=== PATIENT | female | born 1945 | race Caucasian/White ===

== ENCOUNTER 2025-01-09 14:40 | Outpatient (CLI) | payer MEDICARE, BC, SELFPAY | END 2025-01-09 14:41 | disposition home or self-care (01) | LOC: AMB 01-10 14:21 | PROVIDERS: PCP Family Medicine; Visit Provider Emergency Medicine | DX: R55 Syncope and collapse (principal); R53.83 Other fatigue | CPT/HCPCS: A0425; A0427 ==

== ENCOUNTER 2025-01-09 15:16 | Emergency (ER) | payer MEDICARE, BC, SELFPAY ==
[2025-01-09] VITALS (60 sets, daily range): BP systolic 87–161; BP diastolic 54–103; PULSE 80–93; RESP 10–34; TEMP 35.4–37.1; O2SAT 92–100
--- OUTSIDE RECORDS SUMMARY | 2025-01-09 15:18 | XMS_ITS | Clinical Summary ---
Author Organization [employer] [facility] Address [address] [place] [id number] Care Team Providers Care Coil Strapper Name Role Phone Mali Monroy MD Primary Care Prov ider Jeet Martinez Unavailable Kelvin Sandoval MD Unavailable [phone] Allergies No known active allergies Medications MULTIVITAMIN TAB take 1 tablet by oral route once daily with food 0 9 Active LYSINE 1,000 MG TAB 0 9 Active Boemd-3-IER-EPA-F josefa Oil (FISH OIL) 1,000 mg (120 mg-180 mg) cap Take 1 capsule by mouth once daily. 0 7 Active cholecalciferol, Vitamin D3, 25 mcg (1,000 unit) chew chewable tablet Chew 1 Tablet (1,000 units) by mouth once daily. Not sure of dose 0 2 Active medication order composerIndicatio ns:Osteoporosis, unspecified osteoporosis type, unspecified pathological fracture presence Strontium Citrate - 680mg 1 unit 2 Active atorvastatin (LIPITOR) 10 mg tabletIndications :Hypercholesterem ia Take 1 Tablet (10 mg) by mouth once daily. 90 Tablet 3 4 Active levothyroxine (SYNTHROID) 112 mcg tabletIndications :Thyroid ca (HC) Take 1 Tablet (112 mcg) by mouth before breakfast. 90 Tablet 3 4 Active fluticasone (50 mcg per actuation) nasal solution (FLONASE)Indicati ons:Seasonal allergies Inhale 2 Sprays in both nostrils once daily. 16 g 3 Active Hospital, Clinic, or Other Facility Administered Medication Ordered Dose Route Frequency Start Date End Date Status denosumab (PROLIA) injection 60 mgIndications:Other osteoporosis without current pathological fracture 60 mg SubQ Q 26 WEEKS 06/02/2024 06/01/2025 Active Active Problems Problem Noted Date Diagnosed Date ACP (advance care planning) 07/04/2019 Overview (07/04/2019): HCD received . See HCD 06/16/19 PA Banks Advance Care Planning Educator Thyroid ca 08/23/2017 Overview (04/24/2021): Added automatically from request for surgery [id number] Per endocrine 04/2021 The Patient has an excellent prognosis with respect to her thyroid cancer diagnosis. A reasonable plan would include: Annual Tg monitoring: with reassurance if ongoing negative results are noted. Lifelong synthroid use. Thyroid nodule 07/13/2017 Overview (07/13/2017): Added automatically from request for surgery [id number] Seasonal allergies 05/10/2014 Screen for colon cancer 09/15/2012 Overview (09/15/2012): Colonoscopy 09/2012 normal repeat in 10 years Hypercholesteremia 08/18/2012 Osteopenia 05/29/2010 Overview (09/01/2015): 2015 stable osteopenia repeat in 3-5 yrs Resolved Problems Problem Noted Date Diagnosed Date Resolved Date Cancer of thyroid 09/02/2017 04/22/2021 Encounters Date Type Department Care Team Description 01/09/2025 1:35 PM CDT Office Visit [facility] [address] [place] [address] Karen Jaeger PA Concerns (SOUSA Concerns pressure in Forehead. Congestion/tightness in chest. SOBEDigestion concerns. No regular BM for 5 weeks. Last Bm was shoe string size. Last BM was this morning. Bloating ) 01/09/2025 Refill [facility] [address] [place] [address] Karen Jaeger PA Refill Request (Fluticasone (50 Mcg Per Actuation) Nasal) 01/09/2025 Travel from Last 3 Months Immunizations Immunization Administration Dates Next Due COVID-19 vaccine ([employer] NTPanGenX 30mcg/0.3mL) PF, MDV 07/22/2021 Influenza, High-dose Inactivated 024,05/06/2021,05/31/2019,2017,04/19/2014 Influenza, High-dose Quadriv alent Inactivated 05/06/2021 Influenza, IIV3 (Age >=3 years) 06/03/2013,08/25 Influenza, Inactivated AIIV4 (Age 65+ Years) Preserv Free 06/01/2023,04/23/2022 Influenza, Inactivated IIV3 (Age 65+ Years) Preserv Free 05/04/2017 Pneumococcal Poly,23-Valent (Pneumovax) 08/25/2012 Pneumococcal conj 13-Valent (Prevnar 13) 05/04/2017 Td (Age >=7 Years) 02/20/2000 Tdap 06/03/2009 Zoster (Shingrix-RZV, recombinant) 11/29/2023, Zoster (Zostavax-ZVL, live) 09/08/2012 Family History Medical History Relation Name Comments Heart Disease Brother 1 Francisco CABG in 69 69 and AF Heart Disease Brother 2 Jr ME - 2 vessels passed from blockage Cancer Brother 3 Sam mesothelemoma Psychiatric illness Brother 3 Sam depressi on COPD Brother 4 Pat Memory loss Brother 4 Pat Psychiatric illness Brother 4 Pat depressi on Stroke Brother 4 Pat Premature CHD (under age 60) Brother 5 Peter drowning age 21 unsure if heart no autopsy Psychiatric illness Daughter severe d epression Heart Disease Father Heart Disease Mother Osteoporosis Mother Heart Disease Sister 1 Vera CABG x4 Hyperlipidemia Sister 1 Vera on meds Osteoporosis Sister 1 Vera Hyperlipidemia Sister 2 Gerri taking medica tion Osteoporosis Sister 2 Gerri Other Sister 2 Gerri uterine cysts Cancer Sister 3 Cony bone Heart Disease Sister 3 Cony likely cause o f Hyperlipidemia Sister 3 Cony Osteoporosis Sister 3 Cony Good Health Sister 4 Chinyere hernia, uterine fibroids Osteoporosis Sister 4 [place] Allergies Son Cancer-breast No Family History Relation Name Status Comments Brother 1 Francisco Brother 2 Jr Brother 3 Sam Brother 4 Lois Brother 5 Darrell Daughter Father Mother Sister 1 Mandy Alive Sister 2 Gerri Alive Sister 3 Cony Sister 4 Chinyere Alive Son Social History Tobacco Use Types Packs/Day Years Used Date Smoking Tobacco: Never Smokeless Tobacco: Never Tobacco Cessation:Counseling Given: Yes Alcohol Use Standard Drinks/Week Comments Yes 0 (1 standard drink = 0.6 oz pur e alcohol) PHQ-2 Answer Date Recorded PHQ-2 TOTAL SCORE 0 06/01/2024 Social Connections Answer Date Recorded Do you often feel lonely or isolated from those around you? 0 06/01/2024 Financial Resource Strain Answer Date R ecorded Difficulty of Paying Living Expenses 3 06/01/2024 Difficulty of Paying Living Expenses Not on file 06/01/2024 Food Insecurity Answer Date Recorded Do you worry your food will run out before you are able to buy more? 1 06/01/2024 Transportation Needs Answer Date Record ed Does lack of transportation keep you from medica l appointments? 1 06/01/2024 Does lack of transportation keep you from work, meetings or getting things that you need? 1 06/01/2024 Housing Stability Answer Date Recorded What is your housing situation today? 1 06/01/2024 Utilities Answer Date Recorded Do you have trouble paying f or utilities (for example, heat, electricity, water, phone)? 1 06/01/2024 Comments No Sex and Gender Information Value Date Recorded Sex Assigned at Not on file Legal Sex Female 6:32 AM [employer] Gender Identity Not on file Sexual Orientation Not on file Obstetrics History Para Term AB IAB SAB Ectopic Multiple Livin g Live Births 2 2 2 2 Date Outcome GA Total Labor Labor/2nd/3rd Weight Sex Type Anes PTL Ligia A1 A5 Name Clin Term Term Last Filed Vital Signs Vital Sign Reading Time Taken Comments Blood Pressure 112/74 01/09/2025 1:39 PM CDT Pulse 97 01/09/2025 1:39 PM CDT Temperature 36.3 C (97.4 F) 11/18/2017 9:02 AM CDT Respiratory Rate 16 08/31/2022 10:21 AM [employer] Oxygen Saturation 98% 01/09/2025 1:39 PM CDT Inhaled Oxygen Concentration - - Weight 74.4 kg (164 lb) 01/09/2025 1:39 PM CDT Height 163.8 cm (5' 4.5) 06/01/2024 9:28 AM CDT Body Mass Index 27.72 06/01/2024 9:28 AM CDT Plan of Treatment Health Maintenance Due Date Last Done Comments Tetanus booster 06/03/2019 06/03/2009, 02/20/2000 RSV vaccine for adults or (1 - 1-dose 75+ series) 2022 COVID-19 vaccine series ( season) 2024 05/04/2024, 06/11/2022, 07/22/2021, Additional history exists BMI (ht and wt on same day) for age 18+ 06/01/2025 06/01/2024, 06/01/2023, 04/23/2022, Additional history exists Depression screening for age 12+ 06/01/2025 06/01/2024, 06/02/2023, 06/01/2023, Additional history exists Medicare Wellness for age 65+ 06/02/2025 06/01/2024, 06/01/2023, 04/23/2022, Additional history exists Tdap Completed 06/03/2009 Pneumococcal series for age 50+ Completed 05/04/2017, 08/25/2012 Hepatitis C screening for age 18-79 Completed 04/22/2021 DEXA/DXA scan for age 65+ Completed 2022, 05/08/2021, 08/22/2015, Additional history exists Zoster (shingles) series for age 50+ Completed 11/29/2023, 08/05/2023, 09/08/2012 Influenza Vaccine Completed 05/04/2024, , 04/23/2022, Additional history exists Hepatitis B series for 19+ Aged Out N o longer eligible based on patient's age to complete this topic Procedures Procedure Name Priority Date/Time Associated Diagnosis Comments XR DXA BONE DENSITY 2 SITES AXIAL Routine 06/02/2023 10:42 AM CDT Age-related osteoporosis without current pathological fracture from Last 3 Months or Most Recently Relevant to Health Maintenance Results * (ABNORMAL) XR DXA BONE DENSITY 2 SITES AXIAL (06/02/2023 10:42 AM CDT) Anatomical Region Laterality Modality Spine, HIPS, HIPL, HIPR Other Impressions 06/02/2023 5:01 PM CDT Osteoporosis. RECOMMENDATIONS: The National Osteoporosis Foundation recommends pharmacologic treatment for patients with T-scores of -2.5 or less, patients with prior history of fragility fractures, or patients with 10-year probability of greater than 3% at hips or greater than 20% of suffering major osteoporotic fractures. Recommend continued optimization of calcium and vitamin D intake through dietary means and/or supplementation and regular exercise. Consider pharmacologic therapy for osteoporosis. Follow-up bone density reading in 2 years if therapy initiated to assess therapeutic efficacy. Jacquelyn Rees PA-C [facility] 06/02/2023 Narrative 06/02/2023 5:01 PM CDT For Patients: Results are automatically released to your [facility] ([facility]) account once available, in compliance with federal regulations. This means that you may see your results before your provider has had a chance to review them. Please allow 2-3 business days for your provider to comment on the results. XR DXA Bone Mineral Density (BMD) EXAM LOCATION: [address] [address] PATIENT NAME: Rosemarie Valdez DATE OF : 1945 EXAM DATE: 06/02/2023 REQUESTING PROVIDER: Karen Jaeger PA GENDER AT : female HEIGHT: 5' 4.41 (06/01/2023) WEIGHT: 158 lb 3.2 oz (06/01/2023) MENOPAUSAL STATUS: Postmenopausal RACE/ETHNICITY: White RISK FACTORS: Family History of Osteoporosis, Family History of Hip Fracture (parental), and White Race CURRENT MEDICATION FOR BONE LOSS: NONE INDICATION: Follow-up of existing osteoporosis COMPARISON DATE(S): 2020 DXA scans are compared to prior studies for a patient only when the two (or more) studies were performed on the same scanner. It is not possible to compare data generated on one scanner to data from another because there are not standards in DXA equipment. This applies even if the two scanners are made by the same cardiographer. PROCEDURE: Dual-energy x-ray absorptiometry performed with routine technique. Reporting is completed in the form of a T-score. The T-score represents the standard deviation from peak bone mass based on young healthy adult. A Z-score is used for diagnosis in premenopausal women, and for men under the age of 50. FINDINGS: RESULT LUMBAR SPINE L1 - L4(L3) BMD: 1.013 g/cm2 T-Score: - 1.3 Z-Score: + 0.2 Change from prior in 2020: Increase 7.1%. RESULTS FEMUR Left femoral neck BMD: 0.702 g/cm2 T-Score: - 2.4 Z-Score: - 0.6 Change from prior in 2020: Increase 0.9%. Right femoral neck BMD: 0.686 g/cm2 T-Score: - 2.5 Z-Score: - 0.7 Change from prior in 2020: Increase 2.2%. Left hip BMD: 0.728 g/cm2 T-Score: - 2.2 Z-Score: - 0.6 Change from prior in 2020: Increase 1.4%. Right hip BMD: 0.686 g/cm2 T-Score: - 2.6 Z-Score: - 0.9 Change from prior in 2020: Decrease 1.4%. WHO criteria: Normal: T-score at or above -1 SD Osteopenia: T-score between -1.1 and -2.4 SD Osteoporosis: T-score at or below -2.5 SD Karen MACIAS DEXA Final Res ult from Last 3 Months or Most Recently Relevant to Health Maintenance Insurance MEDICARE PB ONLY MEDICARE PART B HB ONLY MEDICARE PART A HB ONLY Member Subscriber Plan / Payer (Ef fective 2012-Present) Name:Rosemarie Valdez Member ID:[id number] Relation to Subscriber:Self Name:Rosemarie Valdez Subscriber ID:[id number] Payer ID:Not on file Group ID:Not on file Type:Not on file Address: ATTN: CLAIMS [address] [place] [id number] [place] [address] Advance Directives Documents on File Type Date Recorded Patient Health Safety Specialist Expl anation Healthcare Directive 07/03/2019 11:03 AM 1 08/16/2018 * Full Code (Latest Code Status on File) Date Activated Date Inactivated Comments 08/27/2017 12:15 PM 08/27/2017 4:44 PM * Full Code Date Activated Date Inactivated Comments 08/27/2017 7:42 AM 08/27/2017 12:15 PM * Full Code Date Activated Date Inactivated Comments 08/20/2017 7:51 PM 08/21/2017 12:45 PM * Full Code Date Activated Date Inactivated Comments 08/20/2017 5:42 AM 08/20/2017 7:32 PM Care Teams Coil Strapper Relationship Specialty Start Date End Date Mali Monroy MD [address] [place] [address] PCP - General 09/06/06 Jeet Martinez [address] [place] [address] Ophthalmology Surgery 08/18/12 Kelvin Sandoval MD [address] [facility] [address] [place] [address] Endocrinology 08/28/22
[2025-01-09] MEDS: 0.9 % SODIUM CHLORIDE 1000 ml 1,000 ML IV (15:20)
--- NOTE | 2025-01-09 15:27 | CRLHL7_ITS ---
For Patients: As a result of the Century Cures Act, medical imaging exams and procedure reports are released immediately into your electronic medical record. You may view this report before your referring provider. If you have questions, please contact your health care provider. INDICATION: Chest pain TECHNIQUE: Chest radiograph 1 view COMPARISON: None FINDINGS: The sensitivity and specificity of the exam are moderately limited by the patient`s body habitus. Mediastinum: A large gas-filled sliding type gastric hiatal hernia (type IV) is present. The heart silhouette is normal in size and morphology. Lung: Small lung volumes are noted with mild bibasilar atelectasis. No sign of pleural effusion seen. No pneumothorax is identified. Bone and Soft tissue: Unremarkable for age. IMPRESSIONS: 1. Small lung volumes are noted with mild bibasilar atelectasis. 2. A large gas-filled sliding type gastric hiatal hernia (type IV) is present. Evaluation with barium swallow may be helpful to exclude gastric outlet obstruction from the hernia. Dictated by Moiz Kelly MD @ 01/09/2025 3:46:52 PM Dictated by: Moiz Kelly MD @ 01/09/2025 15:46:58 (Electronically Signed)
[2025-01-09 15:36] LABS: Basophils Absolute Auto 0.05 K/uL (0.00-0.30); Basophils Percent Auto 0.6 % (0.0-3.0); Eosinophils Absolute Auto 0.07 K/uL (0.00-0.50); Eosinophils Percent Auto 0.8 % (0.0-7.0); Hematocrit 22.6 % (33.0-51.0); Immature Granulocytes Abs Auto 0.04 K/uL (0.00-0.30); Immature Granulocytes Pct Auto 0.4 %; Lymphocytes Absolute Auto 2.37 K/uL (0.90-2.90); Lymphocytes Percent Auto 26.1 % (20-44); Mean Corpuscular HGB Conc 31 gm/dL (32-36); Mean Corpuscular Hemoglobin 22 pg (26-34); Mean Corpuscular Volume 73 fL (80-100); Monocytes Percent Auto 6.9 % (0.0-11.0); Neutrophils Absolute Auto 5.91 K/uL (1.7-7.0); Neutrophils Percent Auto 65.2 % (42.0-72.0); Platelet Count* 478 K/uL (140-440); RDW Coefficient of Variation % 15.7 % (11.5-15.5); Red Blood Count 3.08 m/uL (4.00-5.20); White Blood Count* 9.07 K/uL (4.50-11.00)
--- NOTE | 2025-01-09 15:36 | CRLHL7_ITS ---
For Patients: As a result of the Century Cures Act, medical imaging exams and procedure reports are released immediately into your electronic medical record. You may view this report before your referring provider. If you have questions, please contact your health care provider. INDICATION: Syncope TECHNIQUE: Noncontrast axial CT of the head. Coronal and sagittal reformats. Bone and soft tissue algorithms. COMPARISON: None. FINDINGS: Patient motion artifact degrades image quality and limits evaluation. Rounded 12 mm hyperdense focus along the posterior right occipital lobe, favored extra-axial. No associated parenchymal edema, midline shift or herniation. No other suspicious intracranial hyperdensity. Chase-white matter differentiation appears grossly preserved. Chronic lacunar infarct at the right posterior basal ganglia. Unremarkable midline structures. Intact calvarium. Clear paranasal sinuses and mastoid air cells. Bilateral TMJ arthrosis. Bilateral lens implants. IMPRESSION: 1. Rounded 12 mm hyperdensity along the right posterior occipital convexity, is favored to represent a small meningioma. Consider MRI brain with contrast for further characterization. 2. No skull fracture or convincing evidence of acute intracranial hemorrhage given artifact from patient motion. Please note that all CT scans at this facility use dose modulation, iterative reconstruction, and/or weight-based dosing when appropriate to reduce radiation dose to as low as reasonably achievable. Dictated by Viola Santillan MD @ 01/09/2025 5:04:19 PM (Electronically Signed)
[2025-01-09 15:39] LABS: Glucose, Point-of-Care* 126 mg/dl (60-115)
[2025-01-09 15:40] LABS: Hemoglobin* 6.9 gm/dL (12.0-16.0); Slide Review Reflex No
--- NOTE | 2025-01-09 15:43 | CRLHL7_ITS ---
For Patients: As a result of the Century Cures Act, medical imaging exams and procedure reports are released immediately into your electronic medical record. You may view this report before your referring provider. If you have questions, please contact your health care provider. INDICATION: Syncope, anemia. TECHNIQUE: CT chest PE was acquired with 95 cc Isovue 370 IV contrast. Coronal and sagittal MIP reformats were performed. COMPARISON: None. FINDINGS: Heart and vasculature: No cardiomegaly, no pericardial effusion. No filling defects identified within the main, lobar, and contrast opacified portions of the segmental pulmonary arteries, within limitations of motion artifact. Several segmental and subsegmental pulmonary arteries in the left lower lobe are not well evaluated due to mass effect. There is significant mass effect upon the left atrium secondary to large hiatal hernia. Lungs and pleura: Extensive left lower lobe compressive atelectasis. No evidence of pulmonary infarct. Right basilar subsegmental atelectasis is also noted. Thyroid and lower neck: Thyroid gland is either severely atrophic or absent. Mediastinum/levon: No lymphadenopathy. Chest wall: No axillary lymphadenopathy. Upper abdomen: See separate report of same day CT abdomen/pelvis. Bones: Multilevel degenerative changes of the spine. Bones are osteopenic. IMPRESSION: 1. No evidence of acute pulmonary embolus, within limitations of motion artifact. 2. No evidence of pulmonary infarct. Significant left lower lobe compressive atelectasis. 3. Significant mass effect upon the left atrium secondary to large hiatal hernia. Please note that all CT scans at this facility use dose modulation, iterative reconstruction, and/or weight-based dosing when appropriate to reduce radiation dose to as low as reasonably achievable. Dictated by Kai Brannon MD @ 01/09/2025 5:47:56 PM (Electronically Signed)
--- NOTE | 2025-01-09 15:43 | CRLHL7_ITS ---
For Patients: As a result of the Century Cures Act, medical imaging exams and procedure reports are released immediately into your electronic medical record. You may view this report before your referring provider. If you have questions, please contact your health care provider. INDICATION: Abdominal pain. TECHNIQUE: CT abdomen and pelvis acquired with 95 mL Isovue 370 IV contrast. COMPARISON: None. FINDINGS: Lower chest: See separate report of same day CT chest. Liver: Too small to characterize hypodense hepatic lesions, likely benign in the absence of a known malignancy. Gallbladder and bile ducts: Unremarkable. Pancreas: Unremarkable. Spleen: Unremarkable. Adrenal glands: Unremarkable. Kidneys: Kidneys enhance symmetrically, without hydronephrosis. Too small to characterize hypodense bilateral renal lesions. Retroperitoneum: No lymphadenopathy. Bowel and mesentery: Bowel is not obstructed. No significant ascites, no pneumoperitoneum. Scattered colonic diverticulosis, without evidence of acute diverticulitis. Mild colitis of the ascending and transverse colon. Massive hiatal hernia, with majority of stomach contained within the thorax. There is mild irregular distal esophageal thickening, with few prominent but subcentimeter adjacent paraesophageal lymph nodes. Bladder: Mild pericystic inflammation. Reproductive organs: Unremarkable. Pelvic lymph nodes: No lymphadenopathy. Vessels: Atherosclerotic calcifications. Abdominal wall: No acute abdominal wall abnormality. Bones: Multilevel degenerative changes of the spine. Bones are osteopenic. Dense sclerotic lesion in the L4 vertebral body, likely bone island. IMPRESSION: 1. Massive hiatal hernia, with majority of the stomach contained within the thorax. Mild irregular distal esophageal wall thickening with few prominent adjacent paraesophageal lymph nodes, may reflect sequelae of esophagitis. Recommend follow-up endoscopy to exclude underlying neoplasm. 2. Mild colitis involving the ascending and transverse colon. 3. Mild pericystic inflammation, recommend correlation with urinalysis. Please note that all CT scans at this facility use dose modulation, iterative reconstruction, and/or weight-based dosing when appropriate to reduce radiation dose to as low as reasonably achievable. Dictated by Kai Brannon MD @ 01/09/2025 6:05:31 PM (Electronically Signed)
[2025-01-09 15:51] LABS: Albumin* 3.5 g/dL (3.3-5.0); Chloride* 100 mmol/L (96-114); Potassium* 3.4 mmol/L (3.6-5.1); Sodium* 129 mmol/L (135-149)
[2025-01-09 15:53] LABS: Anion Gap 12 mEq/L (7-15); Blood Urea Nitrogen* 23 mg/dL (7-30); Carbon Dioxide* 17 mmol/L (20-32); Creatinine* 0.9 mg/dL (0.5-1.5); Estimated Glomerular Filt Rate 66 ml/min
[2025-01-09 15:54] LABS: Alanine Aminotransferase* 18 U/L (4-35); Alkaline Phosphatase* 69 U/L (40-150); Aspartate Amino Transferase* 22 U/L (12-35); Bilirubin Direct* 0.2 mg/dL (0.0-0.5); Bilirubin Total* 0.3 mg/dL (0.1-1.5); Calcium* 8.4 mg/dL (8.4-10.6); Glucose* 127 mg/dL (60-115); Total Protein* 5.7 g/dL (6.0-8.3)
[2025-01-09 15:56] LABS: D Dimer Quantitative* 0.57 ug/ml (0.00-0.50)
[2025-01-09 16:06] LABS: Troponin I* < 0.01 ng/mL (0.01-0.04)
--- NOTE | 2025-01-09 16:10 | ED_ITS ---
HPI - General Adult General Chief complaint: Dizziness/Vertigo Stated complaint: Weakness Time Seen by Provider: 01/09/25 15:23 History of Present Illness HPI narrative: pt was at the clinic where she either had a seizure or a syncopal episode, unsure of what the clinic visit was for today but per EMS was having chest pressure for 3 weeks, but had no chest pressure today. 79-year-old presenting to the emergency department via EMS [facility] following apparent syncopal event in clinic. Has had per report few weeks intermittent chest discomfort. Also question whether not been taking excessive ibuprofen. Evidently upon presentation to clinic became rather pale and passed out. Was hypotensive 70/50 approximately. I am able to clarify this story later with Rosemarie when she is more alert. She has been dealing with headache for months. Has been taking ibuprofen for her headache. She has not noted any blood in her stools and has not been vomiting. Over the last couple of weeks has had intermittent chest discomfort, pressure and this is what prompted the visit today to clinic. She has been having smaller loose stools lately. Related Data Allergies Allergy/AdvReac Type Severity Reaction Status Date / Time No Known Drug Allergies Allergy Verified 01/09/25 20:08 Review of Systems Status of ROS: Reports: 6 or more systems reviewed and unremarkable except as noted in History and below (Following resuscitation) PFSH PFSH Social History Smoking Status: Unknown if ever smoked Exam Narrative: Exam Narrative: A initial evaluation presenting with blood pressure of 87/58. She is moaning and not really responsive eyes are open. Supporting her own airway. Oxygenating well. Pupils are 2 mm and equal. There is a little bit of blood on her lower abdomen presumably from IV start. I do not see source of this at this point. She skin is generally pale and clammy. Mucous membranes are rather pale. Abdomen is soft and appears to be nontender. GCS of 13 or 14. Lungs appear to be clear. Heart in elevated rate. Regular Const: Vital Signs, click to edit/add: Vital Signs - 24 hr 01/09/25 15:20 01/09/25 15:23 01/09/25 15:32 Temperature 95.8 F L Pulse Rate 87 Pulse Rate [Pulse Oximeter] 93 Respiratory Rate 18 33 H Blood Pressure 110/68 Blood Pressure [Ri ght Upper Arm] 87/58 L Pulse Oximetry 98 99 98 Oxygen Delivery Me thod Room Air 01/09/25 15:33 01/09/25 15:34 01/09/25 15:36 Temperature Pulse Rate 85 85 83 Pulse Rate [Pulse Oximeter] Respiratory Rate 28 H 32 H 34 H Blood Pressure 111/63 110/65 Blood Pressure [Ri ght Upper Arm] Pulse Oximetry 99 97 98 Oxygen Delivery Me thod 01/09/25 15:37 01/09/25 15:41 01/09/25 15:45 Temperature Pulse Rate 83 86 83 Pulse Rate [Pulse Oximeter] Respiratory Rate 29 H 33 H 29 H Blood Pressure 111/63 Blood Pressure [Ri ght Upper Arm] Pulse Oximetry 98 98 99 Oxygen Delivery Me thod 01/09/25 15:46 01/09/25 15:51 01/09/25 15:56 Temperature 96.2 F L Pulse Rate 87 82 86 Pulse Rate [Pulse Oximeter] Respiratory Rate 27 H 28 H 26 H Blood Pressure 107/61 114/62 109/70 Blood Pressure [Ri ght Upper Arm] Pulse Oximetry 98 100 99 Oxygen Delivery Me thod 01/09/25 15:57 01/09/25 16:00 01/09/25 16:01 Temperature Pulse Rate 89 83 83 Pulse Rate [Pulse Oximeter] Respiratory Rate 23 31 H 21 Blood Pressure 111/61 Blood Pressure [Ri ght Upper Arm] Pulse Oximetry 100 100 97 Oxygen Delivery Me od 01/09/25 16:11 01/09/25 16:15 01/09/25 16:21 Temperature Pulse Rate 85 85 86 Pulse Rate [Pulse Oximeter] Respiratory Rate 26 H 33 H 18 Blood Pressure 117/67 100/61 Blood Pressure [Ri ght Upper Arm] Pulse Oximetry 100 97 100 Oxygen Delivery Me od 01/09/25 16:30 01/09/25 16:31 01/09/25 16:48 Temperature Pulse Rate 85 86 87 Pulse Rate [Pulse Oximeter] Respiratory Rate 24 23 26 H Blood Pressure 90/54 L 114/63 Blood Pressure [Ri ght Upper Arm] Pulse Oximetry 100 97 100 Oxygen Delivery Me thod 01/09/25 17:16 01/09/25 17:20 01/09/25 17:31 Temperature 97.5 F L Pulse Rate 82 80 83 Pulse Rate [Pulse Oximeter] Respiratory Rate 26 H 24 22 Blood Pressure 131/75 131/75 131/64 Blood Pressure [Ri ght Upper Arm] Pulse Oximetry 99 98 99 Oxygen Delivery Me thod Room Air 01/09/25 17:40 01/09/25 17:41 01/09/25 18:01 Temperature 96.3 F L Pulse Rate 82 86 86 Pulse Rate [Pulse Oximeter] Respiratory Rate 20 13 15 Blood Pressure 116/85 116/85 123/67 Blood Pressure [Ri ght Upper Arm] Pulse Oximetry 98 98 95 Oxygen Delivery Me thod Room Air 01/09/25 18:15 01/09/25 18:16 01/09/25 18:31 Temperature 97.3 F L Pulse Rate 87 84 85 Pulse Rate [Pulse Oximeter] Respiratory Rate 18 15 19 Blood Pressure 126/67 126/67 132/70 Blood Pressure [Ri ght Upper Arm] Pulse Oximetry 95 97 92 Oxygen Delivery Me thod Room Air 01/09/25 18:45 01/09/25 19:01 01/09/25 19:02 Temperature 96.9 F L Pulse Rate 80 81 81 Pulse Rate [Pulse Oximeter] Respiratory Rate 23 17 22 Blood Pressure 122/72 98/66 Blood Pressure [Ri ght Upper Arm] Pulse Oximetry 95 96 96 Oxygen Delivery Me thod Room Air 01/09/25 19:15 01/09/25 19:15 01/09/25 19:16 Temperature 97.8 F Pulse Rate 80 83 81 Pulse Rate [Pulse Oximeter] Respiratory Rate 21 26 H 21 Blood Pressure 119/64 119/64 Blood Pressure [Ri ght Upper Arm] Pulse Oximetry 96 95 96 Oxygen Delivery Me thod Room Air 01/09/25 19:30 01/09/25 19:31 01/09/25 19:32 Temperature Pulse Rate 82 87 82 Pulse Rate [Pulse Oximeter] Respiratory Rate 22 24 Blood Pressure 103/64 Blood Pressure [Ri ght Upper Arm] Pulse Oximetry 97 97 95 Oxygen Delivery Me thod 01/09/25 19:40 01/09/25 19:58 01/09/25 19:59 Temperature 98.1 F 97.5 F L Pulse Rate 85 86 Pulse Rate [Pulse Oximeter] Respiratory Rate 16 Blood Pressure 139/74 139/74 Blood Pressure [Ri ght Upper Arm] Pulse Oximetry 97 100 Oxygen Delivery Me thod 01/09/25 20:00 01/09/25 20:01 01/09/25 20:02 Temperature Pulse Rate 84 89 84 Pulse Rate [Pulse Oximeter] Respiratory Rate 26 H 19 Blood Pressure 128/75 Blood Pressure [Ri ght Upper Arm] Pulse Oximetry 97 94 96 Oxygen Delivery Me thod 01/09/25 20:15 01/09/25 20:16 01/09/25 20:21 Temperature 98.3 F Pulse Rate 85 84 86 Pulse Rate [Pulse Oximeter] Respiratory Rate 17 19 16 Blood Pressure 139/70 129/71 Blood Pressure [Ri ght Upper Arm] Pulse Oximetry 94 94 94 Oxygen Delivery Me thod 01/09/25 20:23 01/09/25 20:30 01/09/25 20:31 Temperature Pulse Rate 87 83 84 Pulse Rate [Pulse Oximeter] Respiratory Rate 16 15 10 L Blood Pressure 129/71 130/69 Blood Pressure [Ri ght Upper Arm] Pulse Oximetry 95 95 95 Oxygen Delivery Me thod 01/09/25 20:45 01/09/25 20:45 01/09/25 20:46 Temperature 98.3 F Pulse Rate 86 89 86 Pulse Rate [Pulse Oximeter] Respiratory Rate 14 33 H 22 Blood Pressure 140/82 H 140/82 H 143/76 H Blood Pressure [Ri ght Upper Arm] Pulse Oximetry 97 96 96 Oxygen Delivery Me thod Room Air 01/09/25 20:47 01/09/25 21:00 Temperature Pulse Rate 86 86 Pulse Rate [Pulse Oximeter] Respiratory Rate 17 25 H Blood Pressure Blood Pressure [Ri ght Upper Arm] Pulse Oximetry 96 100 Oxygen Delivery Me thod Course Vital Signs Vital signs: Initial Vital Signs Temperature 95.8 F L 01/09/25 15:20 Temperature Source Temporal Artery Scan 01/09/25 15:20 Pulse Rate 93 01/09/25 15:20 Respiratory Rate 18 01/09/25 15:20 Blood Pressure 87/58 L 01/09/25 15:20 Blood Pressure Mean 67 L 01/09/25 15:20 Blood Pressure Position Supine 01/09/25 15:20 Pulse Oximetry 98 01/09/25 15:20 Oxygen Delivery Method Room Air 01/09/25 15:20 Vital Signs Temperature 95.8 F L 01/09/25 15:20 Pulse Rate 93 01/09/25 15:20 Respiratory Rate 18 01/09/25 15:20 Blood Pressure 87/58 L 01/09/25 15:20 Pulse Oximetry 98 01/09/25 15:20 Oxygen Delivery Method Room Air 01/09/25 15:20 Temperature 98.3 F 01/09/25 20:45 Pulse Rate 86 01/09/25 21:00 Respiratory Rate 25 H 01/09/25 21:00 Blood Pressure 143/76 H 01/09/25 20:46 Pulse Oximetry 100 01/09/25 21:00 Oxygen Delivery Method Room Air 01/09/25 20:45 Medications Administered Medications: Discontinued Medications Generic Name Dose Route Start Last Admin Trade Name Freq PRN Reason Stop Dose Admin Sodium Chloride 1,000 mls @ 1,000 mls/hr 01/09/25 15:28 01/09/25 15:50 0.9 % Sodium Chloride 1000 Ml IV 01/09/25 16:27 Infused .Q1H ONE Infusion Ondansetron HCl 4 mg 01/09/25 16:49 01/09/25 16:54 Ondansetron 2 Mg/Ml Inj IVP 01/09/25 16:50 4 mg ONCE ONE Administration Pantoprazole Sodium 40 mg 01/09/25 16:49 01/09/25 16:54 Pantoprazole Sodium 40 Mg Inj IVP 01/09/25 16:50 40 mg ONCE ONE Administration Medical Decision Making MDM Narrative Medical decision making narrative: Obtaining a 2nd IV for pressure support as needed. This may represent sepsis. I think there was a syncopal event and might be just slow to come out of that. Mucous membranes are pale enough to suggest anemia. Assuming distributive or cardiogenic shock. Will monitor for arrhythmia. Blood sugar approximately 150. Doubt pulmonary embolus be given lack of respiratory symptoms otherwise but certainly possible. Anticipating imaging of chest. Oxygenating well and supporting phone airway will not need intervention here yet. Pushing fluids. Has received most of a 500 bag by EMS. At about 800 mL of fluid in appears to be responding well to this resuscitation. Labs do return with hemoglobin of 7.9. I do not have a prior for comparison although looks to be like 12.3 on later review of records back in 2018. Will be imaging abdomen as well. Type and screen. Stool Hemoccult will need to be collected. INDICATION: Chest pain TECHNIQUE: Chest radiograph 1 view COMPARISON: None FINDINGS: The sensitivity and specificity of the exam are moderately limited by the patient`s body habitus. Mediastinum: A large gas-filled sliding type gastric hiatal hernia (type IV) is present. The heart silhouette is normal in size and morphology. Lung: Small lung volumes are noted with mild bibasilar atelectasis. No sign of pleural effusion seen. No pneumothorax is identified. Bone and Soft tissue: Unremarkable for age. IMPRESSIONS: 1. Small lung volumes are noted with mild bibasilar atelectasis. 2. A large gas-filled sliding type gastric hiatal hernia (type IV) is present. Evaluation with barium swallow may be helpful to exclude gastric outlet obstruction from the hernia. I wonder if this hiatal hernia could been contributing to some of her symptoms recently or even precipitated in some way this syncopal event. Dictated by Moiz Kelly MD @ 01/09/2025 3:46:52 PM INDICATION: Syncope, anemia. TECHNIQUE: CT chest PE was acquired with 95 cc Isovue 370 IV contrast. Coronal and sagittal MIP reformats were performed. COMPARISON: None. FINDINGS: Heart and vasculature: No cardiomegaly, no pericardial effusion. No filling defects identified within the main, lobar, and contrast opacified portions of the segmental pulmonary arteries, within limitations of motion artifact. Several segmental and subsegmental pulmonary arteries in the left lower lobe are not well evaluated due to mass effect. There is significant mass effect upon the left atrium secondary to large hiatal hernia. Lungs and pleura: Extensive left lower lobe compressive atelectasis. No evidence of pulmonary infarct. Right basilar subsegmental atelectasis is also noted. Thyroid and lower neck: Thyroid gland is either severely atrophic or absent. Mediastinum/levon: No lymphadenopathy. Chest wall: No axillary lymphadenopathy. Upper abdomen: See separate report of same day CT abdomen/pelvis. Bones: Multilevel degenerative changes of the spine. Bones are osteopenic. IMPRESSION: 1. No evidence of acute pulmonary embolus, within limitations of motion artifact. 2. No evidence of pulmonary infarct. Significant left lower lobe compressive atelectasis. 3. Significant mass effect upon the left atrium secondary to large hiatal hernia. Please note that all CT scans at this facility use dose modulation, iterative reconstruction, and/or weight-based dosing when appropriate to reduce radiation dose to as low as reasonably achievable. Dictated by Kai Brannon MD @ 01/09/2025 5:47:56 PM INDICATION: Syncope TECHNIQUE: Noncontrast axial CT of the head. Coronal and sagittal reformats. Bone and soft tissue algorithms. COMPARISON: None. FINDINGS: Patient motion artifact degrades image quality and limits evaluation. Rounded 12 mm hyperdense focus along the posterior right occipital lobe, favored extra-axial. No associated parenchymal edema, midline shift or herniation. No other suspicious intracranial hyperdensity. Chase-white matter differentiation appears grossly preserved. Chronic lacunar infarct at the right posterior basal ganglia. Unremarkable midline structures. Intact calvarium. Clear paranasal sinuses and mastoid air cells. Bilateral TMJ arthrosis. Bilateral lens implants. IMPRESSION: 1. Rounded 12 mm hyperdensity along the right posterior occipital convexity, is favored to represent a small meningioma. Consider MRI brain with contrast for further characterization. 2. No skull fracture or convincing evidence of acute intracranial hemorrhage given artifact from patient motion. Please note that all CT scans at this facility use dose modulation, iterative reconstruction, and/or weight-based dosing when appropriate to reduce radiation dose to as low as reasonably achievable. Dictated by Viola Santillan MD @ 01/09/2025 5:04:19 PM INDICATION: Abdominal pain. TECHNIQUE: CT abdomen and pelvis acquired with 95 mL Isovue 370 IV contrast. COMPARISON: None. FINDINGS: Lower chest: See separate report of same day CT chest. Liver: Too small to characterize hypodense hepatic lesions, likely benign in the absence of a known malignancy. Gallbladder and bile ducts: Unremarkable. Pancreas: Unremarkable. Spleen: Unremarkable. Adrenal glands: Unremarkable. Kidneys: Kidneys enhance symmetrically, without hydronephrosis. Too small to characterize hypodense bilateral renal lesions. Retroperitoneum: No lymphadenopathy. Bowel and mesentery: Bowel is not obstructed. No significant ascites, no pneumoperitoneum. Scattered colonic diverticulosis, without evidence of acute diverticulitis. Mild colitis of the ascending and transverse colon. Massive hiatal hernia, with majority of stomach contained within the thorax. There is mild irregular distal esophageal thickening, with few prominent but subcentimeter adjacent paraesophageal lymph nodes. Bladder: Mild pericystic inflammation. Reproductive organs: Unremarkable. Pelvic lymph nodes: No lymphadenopathy. Vessels: Atherosclerotic calcifications. Abdominal wall: No acute abdominal wall abnormality. Bones: Multilevel degenerative changes of the spine. Bones are osteopenic. Dense sclerotic lesion in the L4 vertebral body, likely bone island. IMPRESSION: 1. Massive hiatal hernia, with majority of the stomach contained within the thorax. Mild irregular distal esophageal wall thickening with few prominent adjacent paraesophageal lymph nodes, may reflect sequelae of esophagitis. Recommend follow-up endoscopy to exclude underlying neoplasm. 2. Mild colitis involving the ascending and transverse colon. 3. Mild pericystic inflammation, recommend correlation with urinalysis. Please note that all CT scans at this facility use dose modulation, iterative reconstruction, and/or weight-based dosing when appropriate to reduce radiation dose to as low as reasonably achievable. Dictated by Kai Brannon MD @ 01/09/2025 6:05:31 PM Discussed all findings with Rosemarie and her family. Following imaging and having received 1 unit of blood on reassessment is markedly improved. Color is improved. Mentating normally and obtaining the 2nd part of HPI as above. I think probably this is a slower upper GI bleed in the setting of this possible esophagitis. Contemplating for admission here for EGD if necessary. I did discuss this case with hospitalist and then with our general surgeon. Concerns also expressed of largeness of this hiatal hernia maybe requiring more urgent surgery/decompression. Have spoke with GI and General surgery and then internal medicine accepting to [place] for further cares. Attempting to place an NG tube Medical Records Medical records reviewed: Yes I reviewed the patient's medical records Lab Data Lab results reviewed: Yes I reviewed the patient's lab results Labs: Lab Results 01/09/25 01/09/25 01/09/25 Range/Units 15:15 15:20 15:21 WBC 9.07 (4.50-11.00) K/uL RBC 3.08 L (4.00-5.20) m/uL Hgb 6.9 L* (12.0-16.0) gm/dL Hct 22.6 L (33.0-51.0) % MCV 73 L (80-100) fL MCH 22 L (26-34) pg MCHC 31 L (32-36) gm/dL RDW Coeff of Rosa 15.7 H (11.5-15.5) % Plt Count 478 H (140-440) K/uL Neut % (Auto) 65.2 (42.0-72.0) % Lymph % (Auto) 26.1 (20-44) % Hardee % (Auto) 6.9 (0.0-11.0) % Eos % (Auto) 0.8 (0.0-7.0) % Baso % (Auto) 0.6 (0.0-3.0) % Neut # (Auto) 5.91 (1.7-7.0) K/uL Lymph # (Auto) 2.37 (0.90-2.90) K/uL Hardee # (Auto) 0.60 (0.00-0.90) K/UL Eos # (Auto) 0.07 (0.00-0.50) K/uL Baso # (Auto) 0.05 (0.00-0.30) K/uL Abs Immat Gran (auto) 0.04 (0.00-0.30) K/uL Imm/Tot Granulo (auto) 0.4 % D-Dimer Quant (PE/DVT) 0.57 H (0.00-0.50) ug/ml Sodium 129 L (135-149) mmol/L Potassium 3.4 L (3.6-5.1) mmol/L Chloride 100 (96-114) mmol/L Carbon Dioxide 17 L (20-32) mmol/L Anion Gap 12 (7-15) mEq/L BUN 23 (7-30) mg/dL Creatinine 0.9 (0.5-1.5) mg/dL Estimated GFR 66 ml/min Glucose 127 H (60-115) mg/dL Calcium 8.4 (8.4-10.6) mg/dL Total Bilirubin 0.3 (0.1-1.5) mg/dL Direct Bilirubin 0.2 (0.0-0.5) mg/dL AST 22 (12-35) U/L ALT 18 (4-35) U/L Alkaline Phosphatase 69 (40-150) U/L Troponin I < 0.01 (0.01-0.04) ng/mL Total Protein 5.7 L (6.0-8.3) g/dL Albumin 3.5 (3.3-5.0) g/dL Urine Color (Yellow) Urine Appearance (Clear) Urine pH (5.0-8.5) Ur Specific Kechi (1.000-1.030) Urine Protein (Negative) Urine Glucose (UA) (Negative) Urine Ketones (Negative) Urine Blood (Negative) Urine Nitrite (Negative) Urine Bilirubin (Negative) Urine Urobilinogen (0.2-1.0) Ur Leukocyte Esterase (Negative) Urine RBC (0-2) Urine WBC (0-5) Ur Squamous Epith Cells (None-Few) Urine Bacteria (None) Stool Occult Blood (Negative) POC Glucose (60-115) mg/dl POC Creatinine 1.0 (0.6-1.3) mg/dl POC Troponin I 0.00 L (0.01-0.04) ng/ml Blood Type O Positive Antibody Screen NEGATIVE Crossmatch (AHG) See Detail 01/09/25 01/09/25 01/09/25 Range/Units 15:38 15:39 18:45 WBC (4.50-11.00) K/uL RBC (4.00-5.20) m/uL Hgb (12.0-16.0) gm/dL Hct (33.0-51.0) % MCV (80-100) fL MCH (26-34) pg MCHC (32-36) gm/dL RDW Coeff of Rosa (11.5-15.5) % Plt Count (140-440) K/uL Neut % (Auto) (42.0-72.0) % Lymph % (Auto) (20-44) % Hardee % (Auto) (0.0-11.0) % Eos % (Auto) (0.0-7.0) % Baso % (Auto) (0.0-3.0) % Neut # (Auto) (1.7-7.0) K/uL Lymph # (Auto) (0.90-2.90) K/uL Hardee # (Auto) (0.00-0.90) K/UL Eos # (Auto) (0.00-0.50) K/uL Baso # (Auto) (0.00-0.30) K/uL Abs Immat Gran (auto) (0.00-0.30) K/uL Imm/Tot Granulo (auto) % D-Dimer Quant (PE/DVT) (0.00-0.50) ug/ml Sodium (135-149) mmol/L Potassium (3.6-5.1) mmol/L Chloride (96-114) mmol/L Carbon Dioxide (20-32) mmol/L Anion Gap (7-15) mEq/L BUN (7-30) mg/dL Creatinine (0.5-1.5) mg/dL Estimated GFR ml/min Glucose (60-115) mg/dL Calcium (8.4-10.6) mg/dL Total Bilirubin (0.1-1.5) mg/dL Direct Bilirubin (0.0-0.5) mg/dL AST (12-35) U/L ALT (4-35) U/L Alkaline Phosphatase (40-150) U/L Troponin I (0.01-0.04) ng/mL Total Protein (6.0-8.3) g/dL Albumin (3.3-5.0) g/dL Urine Color Yellow (Yellow) Urine Appearance Clear (Clear) Urine pH 6.0 (5.0-8.5) Ur Specific Ke[place] 1.010 (1.000-1.030) Urine Protein Negative (Negative) Urine Glucose (UA) Negative (Negative) Urine Ketones 1+ A (Negative) Urine Blood Negative (Negative) Urine Nitrite Negative (Negative) Urine Bilirubin Negative (Negative) Urine Urobilinogen 0.2 (0.2-1.0) Ur Leukocyte Esterase Negative (Negative) Urine RBC 0-2 (0-2) Urine WBC 0-2 (0-5) Ur Squamous Epith Cells Few (None-Few) Urine Bacteria None (None) Stool Occult Blood Positive A (Negative) POC Glucose 126 H (60-115) mg/dl POC Creatinine (0.6-1.3) mg/dl POC Troponin I (0.01-0.04) ng/ml Blood Type Antibody Screen Crossmatch (AHG) Critical Care Time Critical Care Time Critical Care Time: Yes Attestation: The patient required my highest level preparedness to intervene emergently and I personally spent this critical care time directly and personally managing the patient. This critical care time included: Obtaining a history; Examining the patient; Pulse oximetry; Ordering and reviewing of studies; Arranging urgent treatment with development of a management plan; Evaluation of patients response to treatment; Frequent reassessment discussions with other providers. This critical care time was performed to assess and manage the high probability of imminent life-threatening deterioration that could result in multiorgan failure. It was exclusive of separate billable procedures and treating other patients and teaching time. Total Critical Care Time in Minutes: 80 Discharge Plan Discharge Clinical Impression: Upper GI bleed, Hiatal hernia, Syncope, Anemia, Esophagitis, Brain lesion Patient Disposition: [facility] Condition: Improved Stand Alone Forms: [facility] Inst[facility]
[2025-01-09] MEDS: PANTOPRAZOLE SODIUM 40 MG INJ IVP (16:54)
[2025-01-09] MEDS: ONDANSETRON 2 MG/ML inj 4 MG IVP (16:54)
[2025-01-09 18:58] LABS: Fecal Occult Blood* Positive (Negative)
[2025-01-09 20:04] LABS: Appearance Urine Clear (Clear); Bilirubin Urine Negative (Negative); Blood Urine Negative (Negative); Color Urine Yellow (Yellow); Glucose Urine Negative (Negative); Ketones Urine 1+ (Negative); Leukocyte Esterase Urine Negative (Negative); Nitrite Urine Negative (Negative); Protein Urine Negative (Negative); Urobilinogen Urine 0.2 (0.2-1.0)
[2025-01-09 20:06] LABS: RBC Urine 0-2 (0-2); Squamous Epithelial Cell Urine Few (None-Few); WBC Urine 0-2 (0-5)
--- NOTE | 2025-01-09 21:04 | CRLHL7_ITS ---
For Patients: As a result of the Cures Act, medical imaging exams and procedure reports are released immediately into your electronic medical record. You may view this report before your referring provider. If you have questions, please contact your health care provider. INDICATION: NG tube placement TECHNIQUE: Chest radiograph 1 view COMPARISON: 01/09/2025 FINDINGS: Mediastinum: A large gas containing gastric hernia is noted without interval change. Lung: Mild compressive atelectasis is seen in the lower lung zones. Both lung apices are excluded. No sign of pleural effusion seen. No pneumothorax is identified. Bone and Soft tissue: Unremarkable for age. NG tube is present with the tip likely within the gastric cardia and side port near the expected GE junction. IMPRESSION: 1. NG tube is present with the tip likely within the gastric cardia and side port near the expected GE junction. Dictated by Moiz Kelly MD @ 01/09/2025 9:31:03 PM Dictated by: Moiz Kelly MD @ 01/09/2025 21:31:11 (Electronically Signed)
== END 2025-01-09 21:40 | disposition short-term general hospital (02) ==
PROVIDERS: Emergency Provider Family Medicine; PCP Family Medicine
DX: K92.2 Gastrointestinal hemorrhage, unspecified (principal); R55 Syncope and collapse; D64.9 Anemia, unspecified; K20.90 Esophagitis, unspecified without bleeding; K44.9 Diaphragmatic hernia without obstruction or gangrene; G93.9 Disorder of brain, unspecified; R07.9 Chest pain, unspecified; I95.9 Hypotension, unspecified; R51.9 Headache, unspecified
CPT/HCPCS: 36415; 36430; 70450; 71045; 71275; 74160; 74177; 80048; 80053; 80076; 81001; 82270; 82565; 82947; 84484; 85025; 85379; 86850; 86900; 86901; 86922; 93005; 94761; 99284; 99291; J2405; J2470; J7030; P9016; Q9967

== ENCOUNTER 2025-01-09 21:31 | Outpatient (CLI) | payer MEDICARE, BC, SELFPAY | END 2025-01-09 21:32 | disposition home or self-care (01) | LOC: AMB 01-10 14:49 | PROVIDERS: PCP Family Medicine; Visit Provider Family Medicine | DX: R10.9 Unspecified abdominal pain (principal); R53.83 Other fatigue; R51.9 Headache, unspecified; R06.02 Shortness of breath | CPT/HCPCS: A0425; A0427 ==

== ENCOUNTER 2025-01-14 14:13 | Outpatient (CLI) | payer MEDICARE, BC, SELFPAY | END 2025-01-14 14:14 | disposition home or self-care (01) | LOC: AMB 01-15 13:12 | PROVIDERS: PCP Family Medicine; Visit Provider Emergency Medicine Emergency Medical Services | DX: R56.9 Unspecified convulsions (principal); R53.1 Weakness | CPT/HCPCS: A0425; A0427 ==

== ENCOUNTER 2025-01-19 05:55 | Outpatient (CLI) | payer MEDICARE, BC, SELFPAY | END 2025-01-19 05:56 | disposition home or self-care (01) | LOC: AMB 01-22 09:15 | PROVIDERS: PCP Family Medicine; Visit Provider Family Medicine | DX: R53.1 Weakness (principal); K92.1 Melena | CPT/HCPCS: A0425; A0433 ==

== ENCOUNTER 2025-01-19 06:49 | Emergency (ER) | payer MEDICARE, BC, SELFPAY ==
--- OUTSIDE RECORDS SUMMARY | 2025-01-15 19:00 | XMS_ITS | Continuity of Care Document ---
Author Organization [facility] Address [address] [address] [place] [address] Phone Care Team Providers Care Spiral Weaver Name Role Phone Viji Mckeon MD Unavailable Unavailable Advance Directives Directive Yes / No Effective Date File Name No Information Encounters Encounter Description Practice Location Reason(s) For Visit Diagnoses Date Provider Providers Copied on Encounter [facility], [address] [address], [place], [place], [id number], tel:[phone] [facility] No Information 5 Linda Hallman. [address] [place] [address], [id number] , [place]. tel:[phone] [facility], [address] [address], [place], [place], [id number], [place] tel:[phone] [facility] No Information 5 Linda Hallman. [address] [place] [address], [id number] , [place]. tel:[phone] [facility], [address] [address], [place], [place], [id number], [place] [phone] [facility] Iron deficiency anemia, unspecified iron deficiency anemia type 5 Deni Myers. [address] [place] [address], [id number] , [place]. tel:[phone] Family History Family Member Type Diagnosis Age At Onset No Information Immunizations Vaccine Date Status Comments Influenza, high-dose, split virus, trivalent, injectable, preservative free administered Note: [facility] bi-direct ional interface ; Source: Other Registry SARS-COV-2 (COVID-19) vaccin e, mRNA, spike protein, LNP, preservative free, 50 mcg/0.5 mL dose administered Note: [facility] bi-direct ional interface ; Source: Other Registry zoster vaccine recombinant administered N ote: [facility] bi-directional interface ; Source: Other Registry zoster vaccine recombinant administered N ote: [facility] bi-directional interface ; Source: Other Registry Influenza, adjuvanted, inactivated, quadrivalent, injectable, preservative free administered Note: [facility] bi-directional interface ; Source: Other Registry SARS-COV-2 (COVID-19) vaccin e, mRNA, spike protein, LNP, bivalent, preservative free, 30 mcg/0.3 mL dose, myles-sucrose formulation administered Note: [facility] bi-direct ional interface ; Source: Other Registry Influenza, adjuvanted, inactivated, quadrivalent, injectable, preservative free administered Note: [facility] bi-directional interface ; Source: Other Registry SARS-COV-2 (COVID-19) vaccin e, mRNA, spike protein, LNP, preservative free, 30 mcg/0.3mL dose administered Note: [facility] bi-direct ional interface ; Source: Other Registry Influenza, high-dose, split virus, quadrivalent, injectable, preservative free administered Note: [facility] bi-direct ional interface ; Source: Other Registry SARS-COV-2 (COVID-19) vaccin e, mRNA, spike protein, LNP, preservative free, 30 mcg/0.3mL dose administered Note: [facility] bi-direct ional interface ; Source: Other Registry SARS-COV-2 (COVID-19) vaccin e, mRNA, spike protein, LNP, preservative free, 30 mcg/0.3mL dose administered Note: [facility] bi-direct ional interface ; Source: Other Registry Influenza, high-dose, split virus, trivalent, injectable, preservative free administered Note: [facility] bi-direct ional interface ; Source: Other Registry Influenza, high-dose, split virus, trivalent, injectable, preservative free administered Note: [facility] bi-direct ional interface ; Source: Other Registry Influenza, adjuvanted, inactivated, trivalent, injectable, preservative free administered Note: [facility] bi-directional interface ; Source: Other Registry Prevnar 13 administered Note: [facility] bi-d irectional interface ; Source: Other Registry Influenza, high-dose, split virus, trivalent, injectable, preservative free administered Note: [facility] bi-direct ional interface ; Source: Other Registry Influenza, high-dose, split virus, trivalent, injectable, preservative free administered Note: [facility] bi-direct ional interface ; Source: Other Registry zoster vaccine, live administered Note: [facility] bi-directional interface ; Source: Other Registry Pneumovax administered Note: [facility] bi-d irectional interface ; Source: Other Registry tetanus toxoid, reduced diphtheria toxoid, and acellular pertussis vaccine, adsorbed administered Note: [facility] b i-directional interface ; Source: Other Registry Payers Payer name Insurance type Covered green party ID Authoriza tion(s) No Information Social History Type Description Quantity Date Captured Comments Sex Female Smoking Status No Information Chief Complaint And Reason For Visit No Information Reason For Referral Reason For Referral No Information Plan Of Treatment Date Type Action Status Referral Ordered: Small Bowel PillCam Appointment date/timeframe: 01/16/2025 ordered History Of Present Illness Encounter Date Complaint History Of Prese nt Illness No Information Functional Status Date Functional Assessmen t No Information Instructions Date Instruction Additional Infor mation No Information Assessments Type Assessment Date No Information Patient Care Teams Name Effective Dates (start - stop) Status Members No Information
--- OUTSIDE RECORDS SUMMARY | 2025-01-15 19:00 | XMS_ITS | Continuity of Care Document ---
Author Organization [facility] Address [address] [address] [place] [address] Phone Care Team Providers Care Community Leader Name Role Phone Viji Mckeon MD Unavailable Unavailable Advance Directives Directive Yes / No Effective Date File Name No Information Encounters Encounter Description Practice Location Reason(s) For Visit Diagnoses Date Provider Providers Copied on Encounter [facility], [address] [address], [place], [place], [id number], tel:[phone] [facility] No Information 5 Linda Hallman. [address] [place] [address], [id number] , [place]. tel:[phone] [facility], [address] [address], [place], [place], [id number], [place] tel:[phone] [facility] No Information 5 Linda Hallman. [address] [place] [address], [id number] , [place]. tel:[phone] [facility], [address] [address], [place], [place], [id number], [place] [phone] [facility] Iron deficiency anemia, unspecified iron deficiency anemia type 5 Deni Myers. [address] [place] [address], [id number] , [place]. tel:[phone] Family History Family Member Type Diagnosis Age [...] and acellular pertussis vaccine, adsorbed administered Note: [facility] b i-directional interface ; Source: Other Registry Payers Payer name Insurance type Covered alliance party ID Authoriza tion(s) No Information Social [...]
[2025-01-19] VITALS (17 sets, daily range): BP systolic 91–142; BP diastolic 31–78; PULSE 86–110; RESP 9–52; TEMP 35.9–36.1; O2SAT 49–100
--- OUTSIDE RECORDS SUMMARY | 2025-01-19 06:51 | XMS_ITS | Clinical Summary ---
Author Organization [facility] Address [address] [place] [id number] Care Team Providers Care Manifest Clerk Name Role Phone Mali Monroy MD Primary Care Prov ider Jeet Martinez Unavailable Kelvin Sandoval MD Unavailable [phone] Specialists, [facility] Surgical Unavailable Allergies No known active allergies Medications Hnmcg-8-PLF-EPA-Fis h Oil (FISH OIL) 1,000 mg (120 mg-180 mg) cap Take 1 capsule by mouth once daily. 0 12/23/19 17 Active cholecalciferol, Vitamin D3, 25 mcg (1,000 unit) chew chewable tablet Chew 1 Tablet (1,000 units) by mouth once daily. Not sure of dose 0 04/23/20 22 Active atorvastatin (LIPITOR) 10 mg tabletIndications:H ypercholesteremia Take 1 Tablet (10 mg) by mouth once daily. 90 Tablet 3 06/01/20 24 Active levothyroxine (SYNTHROID) 112 mcg tabletIndications:T hyroid ca (HC) Take 1 Tablet (112 mcg) by mouth before breakfast. 90 Tablet 3 06/01/20 24 Active fluticasone (50 mcg per actuation) nasal solution (FLONASE)Indication s:Seasonal allergies SHAKE LIQUID AND USE 2 SPRAYS IN EACH NOSTRIL DAILY 48 g 3 01/12/20 25 Active Patients Unique Medication From Home Take by mouth once daily. - Strontium Citrate - 680mg - Algaecal (used for increased bone density) - Instaflex (for joint pain relief) Active Lysine 1,000 mg tablet Take 1,000 mg by mouth once daily. Active pantoprazole 40 mg delayed-release tabletIndications:A nemia due to gastrointestinal blood loss Take 1 Tablet (40 mg) by mouth two times daily before meals. 90 Tablet 3 5 11:24 AM CDT 01/13/20 25 Active MULTIVITAMIN TAB take 1 tablet by oral route once daily with food 0 06/03/20 09 2024 Discontinued (Pharmacist change per medication history (E-cancel not sent)) LYSINE 1,000 MG TAB 0 06/03/20 09 2024 Discontinued (Medication therapy change per hospital protocol (E-cancel not sent)) medication order composerIndications :Osteoporosis, unspecified osteoporosis type, unspecified pathological fracture presence Strontium Citrate - 680mg 1 unit 04/23/20 22 2024 Discontinued (Pharmacist change per medication history (E-cancel not sent)) fluticasone (50 mcg per actuation) nasal solution (FLONASE)Indication s:Seasonal allergies Inhale 2 Sprays in both nostrils once daily. 16 g 3 01/10/20 25 2024 Discontinued (Pharmacist change per medication history (E-cancel not sent)) ibuprofen 200 mg tablet Take 1,000 mg by mouth 2 times daily if needed for Headache. 2024 Discontinued (*IP Discontinued ) Hospital, Clinic, or Other Facility Administered Medication Ordered Dose Route Frequency Start Date End Date Status denosumab (PROLIA) injection 60 mgIndications:Other osteoporosis without current pathological fracture 60 mg SubQ Q 26 WEEKS 06/02/2024 06/01/2025 Active Active Problems Problem Noted Date Diagnosed Date Melena 01/14/2025 Syncope 01/10/2025 Anemia due to gastrointestinal blood loss 2024 History of thyroid cancer 01/09/2025 Hiatal hernia 01/09/2025 Paraesophageal lymphadenopathy 01/09/2025 Esophagitis 01/09/2025 Brain lesion 01/09/2025 Overview (01/09/2025): Head CT at [facility] on 01/09/2025 showed 12 mm hyperdensity along the right posterior occipital convexity consistent with a small meningioma. Should evaluate further as outpatient. Chronic upper GI bleeding 01/09/2025 Overview (01/09/2025): Patient with hemoglobin of 6.9 on 01/09/2025 and found to have large hiatal hernia with esophageal wall thickening consistent with esophagitis. ACP (advance care planning) 07/04/2019 Overview (07/04/2019): HCD received . See HCD 06/16/19 PA Banks Advance Care Planning Educator Thyroid ca 08/23/2017 Overview (04/24/2021): Added automatically from request for surgery [id number] Per endocrine 04/2021 The Patient has an excellent prognosis with respect to her thyroid cancer diagnosis. A reasonable plan would include: Annual Tg monitoring: with reassurance if ongoing negative results are noted. Lifelong synthroid use. Thyroid nodule 07/13/2017 Overview (07/13/2017): Added automatically from request for surgery [id number] Seasonal allergies 05/10/2014 Screen for colon cancer 09/15/2012 Overview (09/15/2012): Colonoscopy 09/2012 normal repeat in 10 years Hypercholesteremia 08/18/2012 Osteopenia 05/29/2010 Overview (09/01/2015): 2015 stable osteopenia repeat in 3-5 yrs Resolved Problems Problem Noted Date Diagnosed Date Resolved Date Cancer of thyroid 09/02/2017 04/22/2021 Encounters Date Type Department Care Team Description 5 12:45 PM CDT Office Visit [facility] [address] [place] [address] Mali Monroy MD Hospital F/U (GI Bleed, surgery on 01/16 Fatigue no pain) 5 Travel [address] [facility] [address] [place] [address] Ernestina Mesa RN Primary RN Care Management; Hospital F/U (LACE 54) 5 11:30 AM CDT Anesthesia Event [facility] [address] [place] [address] Dhara Medina MD 5 10:49 AM CDT - 5 11:29 AM CDT Surgery [facility] [address], [place] [address] Viji Mckeon MD ESOPHAGOGASTRODUODENOSCOPY WITH HEMOSTASIS, EPINEPHRINE INJECTION, BIOPSY, AND BICAP 5 Telephone [facility] [address] [phone] Care Coordination [address] [facility] [address] [place] [address] Ernestina Mesa, KETTY Primary RN Care Management; Hospital F/U (LACE 24) 5 3:40 PM CDT - 5 4:13 PM CDT Hospital Encounter [facility] [address] [place] [address] Edilberto Grossman MD [facility], Addi Wasserman MD Residents, Shimon Gramajo MD Gastrointestinal hemorrhage, unspecified gastrointestinal hemorrhage type (Primary Dx); Weakness; Fatigue, unspecified type; Melena; Anemia due to gastrointestinal blood loss Discharge Disposition: Home Self Care 5 1:35 PM CDT Anesthesia Event [facility] [address] [place] [address] Reshma Duenas MD [place], Jennifer Kim, CRNA 5 1:06 PM CDT - 5 1:51 PM CDT Surgery [facility] [address] [place] [address] Shimon Pearl MD COLONOSCOPY 5 4:28 PM CDT Anesthesia Event [facility] [address] [place] [address] Marti Mueller MD 5 3:49 PM CDT - 5 4:34 PM CDT Surgery [facility] [address] [place] [address] Shimon Pearl MD ESOPHAGOGASTRODUODENOSCOPY [address] [facility] [address] [place] [address] Karen Jaeger PA silke's son called / looking for missing cell phone 5 10:30 PM CDT - 5 12:33 PM CDT Hospital Encounter [facility] [address] [place] [address] [facility], [facility] Hospitalists Of [facility], MD Lev Taylor, Verónica Arroyo MD Anemia due to gastrointestinal blood loss (Primary Dx); Hiatal hernia Discharge Disposition: Home Self Care 5 1:35 PM CDT Office Visit [facility] [address] [place] [address] aKren Jaeger PA Concerns (SOUSA Concerns pressure in Forehead. Congestion/tightness in chest. SOBEDigestion concerns. No regular BM for 5 weeks. Last Bm was shoe string size. Last BM was this morning. Bloating ) 5 Orders Only [facility] Scanner 1 scan: (1-Ord) [facility], XR CHEST 1V PORTABLE, 01/09/2025 5 Orders Only [facility] Scanner 1 scan: (1-Ord) [facility], CT ABD W , 01/09/2025 5 Orders Only [facility] Scanner 1 scan: (1-Ord) [facility], CT ANGIO CHEST PE PROTOCOL, 01/09/2025 5 Orders Only [facility] Scanner 1 scan: (1-Ord) [facility], XR CHEST 1V, 01/09/2025 5 Orders Only [facility] Scanner 1 scan: (1-Ord) [facility], CT HEAD/BRAIN, 01/09/[address] [facility] [address] [place] [address] Karen Jaeger PA Refill Request (Fluticasone (50 Mcg Per Actuation) Nasal) 5 Travel from Last 3 Months Immunizations Immunization Administration Dates Next Due COVID-19 vaccine (Kartela NTech 30mcg/0.3mL) PF, MDV 07/22/2021 Influenza, High-dose Inactivated [...] and AF Heart Disease Brother 2 Jr [place] - 2 vessels passed from blockage Cancer [...] 5 Darrell Daughter Father Mother Sister 1 Vera Alive Sister 2 Gerri Alive Sister 3 [...] or isolated from those around you? 0 01/10/2025 Financial Resource Strain Answer Date R ecorded Difficulty of Paying Living Expenses 3 06/01/2024 Difficulty of Paying Living Expenses Not on file 06/01/2024 Food Insecurity Answer Date Recorded Do you worry your food will run out before you are able to buy more? 1 01/10/2025 Transportation Needs Answer Date Record ed Does lack of transportation keep you from medica l appointments? 1 01/10/2025 Does lack of transportation keep you from work, meetings or getting things that you need? 1 01/10/2025 Housing Stability Answer Date Recorded What is your housing situation today? 1 01/10/2025 Interpersonal Safety Answer Date Record ed Are you being hit, kicked, p ushed or yelled at (see row info)? No 01/14/2025 Interpersonal Safety Abuse 12 - 18 Not on file 01/14/2025 Interpersonal Safety Ambulatory Vulnerability No t on file 01/14/2025 Utilities Answer Date Recorded Do you have trouble paying f or utilities (for example, heat, electricity, water, phone)? 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 Gender Identity Not on file Sexual Orientation Not on file Obstetrics History Para Term AB IAB SAB Ectopic Multiple Livin g Live Births 2 2 2 2 Date Outcome GA Total Labor Labor/2nd/3rd Weight Sex Type Anes PTL Ligia A1 A5 Name Clin Term Term Last Filed Vital Signs Vital Sign Reading Time Taken Comments Blood Pressure 108/72 01/18/2025 1:07 PM CDT Pulse 92 01/18/2025 1:07 PM CDT Temperature 36.7 C (98.1 F) 01/18/2025 1:07 PM CDT Respiratory Rate 16 01/17/2025 7:49 AM CDT Oxygen Saturation 98% 01/18/2025 1:07 PM CDT Inhaled Oxygen Concentration - - Weight 73 kg (161 lb) 01/14/2025 7:13 PM CDT Height 162.6 cm (5' 4) 01/14/2025 7:13 PM CDT Body Mass Index 27.64 01/14/2025 7:13 PM CDT Plan of Treatment Health Maintenance Due [...] on patient's age to complete this topic Goals Goal Patient Goal Type Associated Problems Recent Progress Patient-Stated? 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 Procedure Name Priority Date/Time Associated Diagnosis Comments HEMOGLOBIN Routine 01/18/2025 2:21 PM CDT Gastrointestinal hemorrhage, unspecified gastrointestinal hemorrhage type HEMOGLOBIN STAT 01/17/2025 1:42 PM CDT BASIC METABOLIC PANEL Early AM 01/17/2025 5:57 AM CDT HEMOGLOBIN Early AM 01/17/2025 5:57 AM CDT SCAN-CARDIAC STRIP 01/17/2025 3:12 AM CDT HEMOGLOBIN Today 01/16/2025 10:58 PM CDT HEMOGLOBIN Today 01/16/2025 3:41 PM CDT PATH TISSUE EXAM Today 01/16/2025 11:56 AM CDT ENDOSCOPY 01/16/2025 11:31 AM CDT ESOPHAGOGASTRODUODENOSCOPY WITH HEMOSTASIS 01/16/2025 11:20 AM CDT see md dictation HEMOGLOBIN Early AM 01/16/2025 7:36 AM CDT BASIC METABOLIC PANEL Early AM 01/16/2025 7:36 AM CDT TRANSFUSE RBC (NURSE COMMUNICATION ORDER) STAT 01/16/2025 2:57 AM CDT RBC W/O TYPE & SCREEN STAT 01/16/2025 2:38 AM CDT RED BLOOD CELLS EA UNIT STAT 01/17/20 2:38 AM CDT HEMOGLOBIN Timed 01/16/2025 1:50 AM CDT SCAN-CARDIAC STRIP 01/16/2025 1:27 AM CDT HEMOGLOBIN Timed 01/15/2025 10:03 PM CDT URINALYSIS MICROSCOPIC Timed 8:45 PM CDT UA W/ SEDIMENT EXAM REFLEXED PER CRITERIA Today 01/15/2025 8:45 PM CDT HEMOGLOBIN Today 01/15/2025 3:03 PM CDT SCAN-CARDIAC STRIP 01/15/2025 2:36 PM CDT MAGNESIUM DAVID 01/15/2025 8:17 AM CDT HEMOGLOBIN STAT 01/15/2025 8:17 AM CDT CALCIUM IONIZED HOSPITAL [facility] W ONLY STAT 01/15/2025 8:17 AM CDT LACTATE VENOUS STAT 01/15/2025 8:17 AM CDT RBC W/O TYPE & SCREEN STAT 01/15/2025 5:44 AM CDT RED BLOOD CELLS EA UNIT STAT 01/16/20 5:27 AM CDT RED BLOOD CELLS EA UNIT STAT 01/16/20 5:27 AM CDT TRANSFUSE RBC (NURSE COMMUNICATION ORDER) STAT 01/15/2025 5:[address] CHEST ABDOMEN PELVIS WWO STAT 12/31 4:59 AM CDT SCAN-CARDIAC STRIP 01/15/2025 4:24 AM CDT PROTIME-INR STAT 01/15/2025 4:11 AM CDT COMP METABOLIC PANEL STAT 01/15/2025 4:11 AM CDT CBC WITH AUTO DIFFERENTIAL STAT 01/15 4:10 AM CDT CBC WITH AUTO DIFFERENTIAL STAT 01/15 4:10 AM CDT BLOOD GAS,VENOUS STAT 01/15/2025 4:10 AM CDT LACTATE VENOUS STAT 01/15/2025 4:10 AM CDT TRANSFUSE RBC (NURSE COMMUNICATION ORDER) STAT 01/15/2025 3:51 AM CDT RBC W/O TYPE & SCREEN STAT 01/15/2025 3:35 AM CDT RBC W/O TYPE & SCREEN STAT 01/15/2025 3:35 AM CDT RED BLOOD CELLS EA UNIT STAT 01/16/20 3:35 AM CDT RED BLOOD CELLS EA UNIT STAT 01/16/20 3:35 AM CDT EKG 12 LEAD STAT 01/15/2025 3:27 AM CDT GLUCOSE METER Timed 01/15/2025 3:05 AM CDT TRANSFUSE RBC (NURSE COMMUNICATION ORDER) STAT 01/14/2025 6:26 PM CDT RBC W/O TYPE & SCREEN STAT 01/14/2025 5:59 PM CDT RED BLOOD CELLS EA UNIT STAT 01/15/20 25 5:55 PM CDT PROTIME-INR STAT 01/14/2025 4:36 PM CDT TYPE & SCREEN STAT 01/14/2025 4:17 PM CDT CBC WITH AUTO DIFFERENTIAL STAT 01/14 4:17 PM CDT TROPONIN T (HS) ONE TIME STAT 025 4:17 PM CDT HEPATIC FUNCTION PANEL STAT 4:17 PM CDT BASIC METABOLIC PANEL STAT 01/14/2025 4:17 PM CDT CBC WITH AUTO DIFFERENTIAL STAT 01/14 4:17 PM CDT POTASSIUM Today 01/12/2025 11:19 AM CDT CREATININE Today 01/12/2025 11:19 AM CDT HEMOGLOBIN Today 01/12/2025 11:19 AM CDT SCAN-CARDIAC STRIP 01/12/2025 12:44 AM CDT COLONOSCOPY 01/11/2025 1:30 PM CDT See MD dictation COLONOSCOPY 01/11/2025 1:29 PM CDT SCAN-CARDIAC STRIP 01/11/2025 1:07 AM CDT ESOPHAGOGASTRODUODENOSCOPY 01/10 4:23 PM CDT Esophagitis ENDOSCOPY 01/10/2025 3:51 PM CDT ECHO TTE COMPLETE WO CONTRAST DAVID 11:01 AM CDT PROTIME-INR Early AM 01/10/2025 6:35 AM CDT CBC W PLT NO DIFF Early AM 01/10/2025 6:35 AM CDT BASIC METABOLIC PANEL Early AM 01/10/2025 6:35 AM CDT SCAN-CARDIAC STRIP 01/10/2025 12:52 AM CDT SCAN-RADIOLOGY REPORT 01/09/2025 12:00 AM CDT SCAN-CT INTERPRETATION 12:00 AM CDT SCAN-CT INTERPRETATION 12:00 AM CDT SCAN-RADIOLOGY REPORT 01/09/2025 12:00 AM CDT SCAN-CT INTERPRETATION 12:00 AM CDT XR DXA BONE DENSITY 2 SITES AXIAL Routine 06/02/2023 10:42 AM CDT Age-related osteoporosis without current pathological fracture from Last 3 Months or Most Recently Relevant to Health Maintenance Results * (ABNORMAL) HEMOGLOBIN (01/18/2025 2:21 PM CDT) Only the most recent of11 resultswithin the time period is included. Pathologist [facility] HEMOGLOBIN 8.2(L) 11.7 - 15.5 g/dL [facility] Blood BLOOD SPECIMEN / Unknown 01/18/2025 2:21 PM CDT 01/18/2025 2:22 PM CDT Mali Monroy MD HEMATOLOGY [facility] Result [employer] [facility] [address] [place] [phone], [facility] [address] [place] [phone] * (ABNORMAL) Basic metabolic panel AM (01/17/2025 5:57 AM CDT) Only the most recent of4 resultswithin the time period is included. Pathologist [facility] SODIUM 140 136 - 145 mmol/L 01/17/2025 6:57 AM CDT [facility] POTASSIUM 3.8 3.5 - 5.1 mmol/L 01/17/2025 6:57 AM CDT [facility] TRAL LABOR[facility] CHLORIDE 107 98 - 107 mmol/L 01/17/2025 6:57 AM CDT [facility] CO2,TOTAL 23 22 - 29 mmol/L 01/17/2025 6:57 AM CDT [facility] ANION GAP 10 5 - 18 01/17/2025 6:57 AM CDT [facility] GLUCOSE 88 70 - 99 mg/dL 01/17/2025 6:57 AM CDT [facility] TR[facility] CALCIUM 8.0(L) 8.8 - 10.4 mg/dL 01/17/2025 6:57 AM CDT [facility] TRAL [facility] Comment: Reference ranges for this test were updated on 06/06/2024 to reflect our healthy population more accurately. Reference range changes are not retroactively applied to results, but previous results using the same methodology can be interpreted in the context of the new reference range. BUN 6(L) 8 - 23 mg/dL 01/17/2025 6:57 AM CDT [facility] TRA LABORATORY CREATININE 0.78 0.50 - 0.90 mg/dL 01/17/2025 6:57 AM CDT [facility] BUN/CREAT RATIO 8(L) 10 - 20 6:57 AM CDT [facility] eGFR 78(L) >90 mL/min/1. 73m2 01/17/2025 6:57 AM CDT [facility] TR[facility] Comment:As of 2021, eG FR is calculated by the CKD-EPI creatinine equation without race adjustment. eGFR can be influenced by muscle mass, exercise, and diet. The reported eGFR is an estimation only and is only applicable if the renal function is stable. Blood BLOOD SPECIMEN / Unknown Venipuncture / Unknown 01/17/2025 5:57 AM CDT 01/17/2025 6:31 AM CDT us Saman Campos MD CHEMISTRY Final Result [facility] [address] [place] [address], [place] * SCAN-CARDIAC STRIP (01/17/2025 3:12 AM CDT) us Scanner OTHER Final Result * PATH TISSUE EXAM (01/16/2025 11:56 AM CDT) Case Report Pathology Report Case: [id number] Authorizing Provider: Viji Mckeon MD Collected: 01/16/2025 1156 Ordering Location: [facility] Received: 01/16/2025 1218 Hospital Pathologist: Thomas Dobbs MD Specimen: Gastric Biopsy, ulcer 01/17/2025 8:53 AM CDT [facility] Final Diagnosis A) STOMACH, BIOPSY: 1. Gastric cardia mucosa with ulceration and reactive changes 2. Negative for Helicobacter 3. Negative for dysplasia 01/17/2025 8:53 AM CDT [facility] at 0853 CDT Clinical Information Ms. Uribe is a 79 y.o. with melena who undergoes upper GI endoscopy. 01/17/2025 8:53 AM CDT [facility] Gross Description A) Received in formalin are 4 stuart mucosal fragments averaging 1 mm in greatest dimension, which are entirely submitted in one cassette. It is labeled with the patient's name and designated gastric ulcer biopsy. COLLEEN Leyva 01/16/2025 2:50 PM 01/17/2025 8:53 AM CDT [facility] Microscopic Description The final diagnosis is based on microscopic examination of appropriate sections of all specimens. 01/17/2025 8:53 AM CDT [facility] Additional Information Interpreted at [facility] - [address], [place] [address] 01/17/2025 8:53 AM CDT [facility] Biopsy GASTRIC BIOPSY SPECIMEN / Unknown 01/16/2025 11:56 AM CDT 01/16/2025 12:18 PM CDT us Viji Mckeon MD PATHOLOGY/CYTOLOGY Final Res ult [facility] [address] [place] [address], * ENDOSCOPY (01/16/2025 11:31 AM CDT) 01/16/2025 11:3 1 AM CDT Narrative Transcriptions Viji Mckeon MD - 01/16/2025 12:13 PM CDT [facility] Patient Name: Rosemarie Uribe Procedure Date: 01/16/2025 Gender: Female Date of : 1945 Admit Type: Inpatient Procedure: Upper GI endoscopy Proceduralist: Viji Mckeon - [facility] Indications/Pre-Op Diagnosis: Melena Medications: Monitored Anesthesia Care Procedure Description: Risk of bleeding, infection, perforation, need for surgery and alternatives discussed. The endosocpe [id number] was introduced through the mouth, and advanced to the second part of duodenum. The upper GI endoscopy was accomplished without difficulty. The patient tolerated the procedure well. Complications: No immediate complications. Estimated blood loss: Minimal. Estimated Blood Loss & Specimen: Estimated blood loss was minimal. Specimen collected: Yes and sent to Laboratory Findings: The examined esophagus was normal. A large hiatal hernia with paraesophageal component was present. One non-bleeding cratered gastric ulcer with a visible vessel wasfound in the gastric body, right at the level of the diaphragmatic pinch.The lesion was 10 mm in largest dimension. Visible vessel was preseent. Biopsies were taken. Area was successfully injected with 2 mL of a0.1 mg/mL solution of epinephrine and then cauterized with the bipolargold probe. Estimated blood loss was minimal. The examined duodenum was normal. Impressions/Post-Op Diagnosis: - Normal esophagus. - Large hiatal hernia with paraesophageal component. - Non-bleeding gastric ulcer with a visible vessel at thediaphragmatic pinch. Biopsied. Injected. Cauterized. - Normal examined duodenum. Recommendation: - Await pathology results. - BID PPI. - Resume diet. - No need for pill cam - GI will sign off and follow up on path peripherally. If benign/ischemic, would reconsult Dr. Schafer for HH repair. Viji Mckeon, 01/16/2025 12:12:50 PM This report has been signed electronically. Note Initiated On: 01/16/2025 11:31 AM Viji Mckeon MD PROCEDURE ORD Final Result * TRANSFUSE RBC (NURSE COMMUNICATION ORDER) (01/16/2025 5:30 AM CDT) Blood BLOOD SPECIMEN / Unknown Loretta Thomas DO NURSING BLOOD BANK Final Resul t * RBC W/O TYPE & SCREEN (01/16/2025 2:38 AM CDT) Only the most recent of5 resultswithin the time period is included. QUANTITY 1 01/16/2025 2:3 8 AM CDT [facility] [employer] LAB BLOOD BANK Blood BLOOD SPECIMEN / Unknown 01/16/2025 2:36 AM CDT Loretta Thomas DO BLOOD BANK Final Result [facility] [employer] BLOOD BANK [address] [place] [address], [place] [phone] * RED BLOOD CELLS EA UNIT (01/16/2025 2:38 AM CDT) Only the most recent of6 resultswithin the time period is included. CROSSMATCH Compatible Compatible [facility] [employer] BLOOD BANK PRODUCT BLOOD TYPE O Rh Positive [facility] BLOOD BANK PRODUCT ID NUMBER [id number] [facility] BLOOD BANK PRODUCT STATUS Transfused [facility] PRODUCT DESCRIPTION RBC -1 LR Pt1 [facility] PRODUCT CODE [id number] [facility] LAB BLOOD BANK ISSUE DATE/TIME 01/16/25 02:49 [facility] LAB BLOOD BANK Loretta Thomas DO BLOOD BANK Edited Result - Final [facility] BLOOD BANK [address] [place] [address], [place] [phone] * SCAN-CARDIAC STRIP (01/16/2025 1:27 AM CDT) Scanner OTHER Final Result * URINALYSIS MICROSCOPIC (01/15/2025 8:45 PM CDT) RBC 0-2 0-2, None Seen /HPF 01/15/2025 9:17 PM CDT [facility] WBC 0-2 0-2, 3-5, None Seen /HPF 01/15/2025 9:17 PM CDT [facility] TRAL LABORATORY BACTERIA None Seen None Seen, Rare, Few Bacteria/ HPF 01/15/2025 9:17 PM CDT [facility] TRAL LABOR[facility]ORY EPITHELIAL CELLS None Seen None Seen, Few Epi/HPF 01/15/2025 9:17 PM CDT [facility] TRAL LABOR[facility]ORY HYALINE CASTS 0-2 0-2, 3-5 /LPF 01/15/2025 9:17 PM CDT [facility] LAB[facility] Urine URINE SPECIMEN / Unknown Non-Blood / Unknown 01/15/2025 8:45 PM CDT 01/15/2025 8:53 PM CDT us Med Ayala MD URINE Final Result Performing Organization Address City/[facility]/ZIP Co de Phone Number [facility] [facility] [address] [place] [address], [place] * (ABNORMAL) Urinalysis TODAY (01/15/2025 8:45 PM CDT) COLOR Yellow Yellow Color 01/15/2025 9:17 PM CDT [facility] TRAL LAB[facility]ATORY CLARITY Clear Clear Clarity 01/15/2025 9:17 PM CDT [facility] TRAL LAB[facility] SPECIFIC GRAVITY,URINE 1.010 1.010, 1.015, 1.020, 1.025 01/15/2025 9:17 PM CDT [facility] TRAL LABORATORY PH,URINE 5.5 6.0, 7.0, 8.0, 5.5, 6.5, 7.5, 8.5 01/15/2025 9:17 PM CDT [facility] UROBILINOGEN, QUALITATIVE Normal Normal EU/dl 01/15/2025 9:17 PM CDT [facility] [facility] PROTEIN, URINE Negative Negative mg/dL 01/15/2025 9:17 PM CDT [facility] GLUCOSE, URINE Negative Negative mg/dL 01/15/2025 9:17 PM CDT [facility] KETONES,URINE Negative Negative mg/dL 01/15/2025 9:17 PM CDT [facility] BILIRUBIN,URI NE Negative Negative 01/15/2025 9:17 PM CDT [facility] OCCULT BLOOD,URINE Negative Negative 01/15/2025 9:17 PM CDT [facility] NITRITE Negative Negative 01/15/2025 9:17 PM CDT [facility] LEUKOCYTE ESTERASE Trace(A) Negative 01/15/2025 9:17 PM CDT [facility] Urine URINE SPECIMEN / Unknown Non-Blood / Unknown 01/15/2025 8:45 PM CDT 01/15/2025 8:53 PM CDT us Med Ayala MD URINE Final Result [facility] [address] [place] [address], [place] * SCAN-CARDIAC STRIP (01/15/2025 2:36 PM CDT) Scanner OTHER Final Result * LACTATE VENOUS (01/15/2025 8:17 AM CDT) Only the most recent of2 resultswithin the time period is included. LACTATE,VENOUS 0.9 0.5 - 2.0 mmol/L 01/15/2025 9:09 AM CDT [facility] Blood BLOOD SPECIMEN / Unknown Butterfly / Unknown 01/15/2025 8:17 AM CDT 01/15/2025 8:27 AM CDT Shimon Martínez MD CHEMISTRY Final Res ult Performing Organization Address City/[facility]/ZIP Co de Phone Number [facility] [address] [place] [address], * Magnesium FOR ADD ON (01/15/2025 8:17 AM CDT) Pathologist [facility] MAGNESIUM 1.9 1.6 - 2.4 mg/dL 01/15/2025 3:51 PM CDT [facility] Blood BLOOD SPECIMEN / Unknown Butterfly / Unknown 01/15/2025 8:17 AM CDT 01/15/2025 8:27 AM CDT Shimon Martínez MD CHEMISTRY Final Res ult [facility] [address] [place] [address], * Calcium, ionized STAT (01/15/2025 8:17 AM CDT) CALCIUM,IONIZE D 1.18 1.15 - 1.27 mmol/L 01/15/2025 8:36 AM CDT [facility] Blood BLOOD SPECIMEN / Unknown Butterfly / Unknown 01/15/2025 8:17 AM CDT 01/15/2025 8:27 AM CDT us Fredy Coronado MD CHEMISTRY Final Result [facility] [address] [place] [address], [place] * TRANSFUSE RBC (NURSE COMMUNICATION ORDER) (01/15/2025 5:38 AM CDT) Blood BLOOD SPECIMEN / Unknown us Fredy Coronado MD NURSING BLOOD BANK Final Result * TRANSFUSE RBC (NURSE COMMUNICATION ORDER) (01/15/2025 5:00 AM CDT) Blood BLOOD SPECIMEN / Unknown us Fredy Coronado MD NURSING BLOOD BANK Final Result * CT CHEST ABDOMEN PELVIS WWO (01/15/2025 4:59 AM CDT) Anatomical Region Laterality Modality Abdomen, Pelvis, AORTA, LIVER, SPLEEN, CHEST Computed Tomography 01/15/2025 5:25 AM CDT Impressions 01/15/2025 5:25 AM CDT 1. CHEST: Large hiatal hernia. Approximately 2/3 of the stomach is within the chest. No associated closed loop obstruction or complication. Basilar opacity on the left probably atelectasis. 2. ABDOMEN AND PELVIS: No significant visceral abnormality. 3. GI BLEEDING STUDY: Faint blush identified in the arterial phase of the exam in the left lateral aspect of the lower rectum and anorectal canal probably representing the source of bleeding. No other findings suggestive of GI bleeding 4. 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 OSSEOUS STRUCTURES: A few sclerotic foci are noted which statistically are most likely bone islands 6. Other nonacute appearing findings as discussed in the body of the report. Please review the comments Please note that all CT scans at this facility use dose modulation, iterative reconstruction, and/or weight-based dosing when appropriate to reduce radiation dose to as low as reasonably achievable. Dictated by Pedro Pablo Bolanos MD @ 01/15/2025 5:25:43 AM (Electronically Signed) Narrative 01/15/2025 5:25 AM CDT For Patients: As a result of the Century Cures Act, medical imaging exams and procedure reports are released immediately into your electronic medical record. You may view this report before your referring provider. If you have questions, please contact your health care provider. INDICATION: Lower GI bleed COMPARISON: No prior transaxial studies of the chest, abdomen or pelvis available for comparison TECHNIQUE: CT examination of the chest, abdomen and pelvis was performed following the before and after intravenous administration of 100 cc of Omnipaque 350. Thin section axial images were obtained from the thoracic inlet through the pubic symphysis. Oral contrast was not administered. 3D reformats/MIP imaging was provided. This was performed as a triple phase GI bleeding protocol exam Please note that all CT scans at this facility use dose modulation, iterative reconstruction, and/or weight-based dosing when appropriate to reduce radiation dose to as low as reasonably achievable. FINDINGS: CHEST: The heart size is normal. There is no mediastinal or hilar adenopathy or mass. No pericardial effusion. Atherosclerotic vascular calcifications are noted. There is a very large hiatal hernia. Approximately 2/3 of the patient`s stomach is intrathoracic. No evidence of volvulus or closed loop obstruction. The lungs show patchy opacities probably representing atelectasis associated with the large hiatal hernia. No definite focal consolidation, infiltrate, mass, pleural effusion or pneumothorax. ABDOMEN AND PELVIS: LIVER/BILIARY SYSTEM:A few scattered tiny low-density hepatic lesions are noted which are likely cysts. No biliary ductal dilation. Normal appearing gallbladder. ADRENALS: Normal KIDNEYS, URETERS and BLADDER:The kidneys appear normal. No visible mass, calculus or hydronephrosis. The ureters and bladder as visualized appear normal. SPLEEN:Normal appearance. PANCREAS: Appears normal. RETROPERITONEUM and MESENTERY: No adenopathy or mass. Atherosclerotic vascular calcification GASTROINTESTINAL SYSTEM: There is no evidence of diverticulitis, colitis, mechanical obstruction, or appendicitis. The small bowel as visualized appears normal.Fecal retention. Diverticulosis. PELVIS: No mass, adenopathy or free fluid. OSSEOUS STRUCTURES and ABDOMINAL WALL: Degenerative changes. A few sclerotic foci are noted which are statistically most likely bone islands.No significant abdominal wall abnormality. OTHER: No free fluid or free air. ANGIOGRAM AND GI BLEEDING PORTION OF THE STUDY: Faint blush identified in the arterial phase of the study in the left lateral aspect of the lower rectum and anorectal canal. Please see series 4, images 454 through 463. There is diffuse atherosclerosis identified. 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 There is J hook configuration of the celiac which is associated with this abnormality. This pattern can create median arcuate ligament syndrome Procedure Note Pedro Pablo Bolanos MD - 01/15/2025 For Patients: As a result of the Century Cures Act, medical imagingexams and procedure reports are released immediately into your electronicmedical record. You may view this report before your referring provider.If you have questions, please contact your health care provider. INDICATION: Lower GI bleed COMPARISON: No prior transaxial studies of the chest, abdomen or pelvis available forcomparison TECHNIQUE: CT examination of the chest, abdomen and pelvis was performed followingthe before and after intravenous administration of 100 cc of [id number]. Thin section axial images were obtained from the thoracic inletthrough the pubic symphysis. Oral contrast was not administered. 3Dreformats/MIP imaging was provided. This was performed as a triple phaseGI bleeding protocol exam Please note that all CT scans at this facility use dose modulation,iterative reconstruction, and/or weight-based dosing when appropriate toreduce radiation dose to as low as reasonably achievable. FINDINGS: CHEST: The heart size is normal. There is no mediastinal or hilar adenopathy ormass. No pericardial effusion. Atherosclerotic vascular calcifications arenoted. There is a very large hiatal hernia. Approximately 2/3 of the patient`sstomach is intrathoracic. No evidence of volvulus or closed loopobstruction. The lungs show patchy opacities probably representing atelectasisassociated with the large hiatal hernia. No definite focal consolidation,infiltrate, mass, pleural effusion or pneumothorax. ABDOMEN AND PELVIS: LIVER/BILIARY SYSTEM:A few scattered tiny low-density hepatic lesions arenoted which are likely cysts. No biliary ductal dilation. Normal appearinggallbladder. ADRENALS: Normal KIDNEYS, URETERS and BLADDER:The kidneys appear normal. No visible mass,calculus or hydronephrosis. The ureters and bladder as visualized appearnormal. SPLEEN:Normal appearance. PANCREAS: Appears normal. RETROPERITONEUM and MESENTERY: No adenopathy or mass. Atheroscleroticvascular calcification GASTROINTESTINAL SYSTEM: There is no evidence of diverticulitis, colitis,mechanical obstruction, or appendicitis. The small bowel as visualizedappears normal.Fecal retention. Diverticulosis. PELVIS: No mass, adenopathy or free fluid. OSSEOUS STRUCTURES and ABDOMINAL WALL: Degenerative changes. A fewsclerotic foci are noted which are statistically most likely boneislands.No significant abdominal wall abnormality. OTHER: No free fluid or free air. ANGIOGRAM AND GI BLEEDING PORTION OF THE STUDY: Faint blush identified inthe arterial phase of the study in the left lateral aspect of the lowerrectum and anorectal canal. Please see series 4, images 454 through 463. There is diffuse atherosclerosis identified. There is a high-gradestenosis of the proximal celiac artery probably due to an impression fromthe median arcuate ligament. There is J hook configuration of the celiacwhich is associated with this abnormality. This pattern can create medianarcuate ligament syndrome IMPRESSION: 1. CHEST: Large hiatal hernia. Approximately 2/3 of the stomach is withinthe chest. No associated closed loop obstruction or complication. Basilaropacity on the left probably atelectasis. 2. ABDOMEN AND PELVIS: No significant visceral abnormality. 3. GI BLEEDING STUDY: Faint blush identified in the arterial phase of theexam in the left lateral aspect of the lower rectum and anorectal canalprobably representing the source of bleeding. No other findings suggestiveof GI bleeding 4. ANGIOGRAM: High-grade stenosis at the origin of the celiac arteryprobably due to extrinsic compression from the median arcuate ligament asdescribed above 5. OSSEOUS STRUCTURES: A few sclerotic foci are noted which statisticallyare most likely bone islands 6. Other nonacute appearing findings as discussed in the body of thereport. Please review the comments Please note that all CT scans at this facility use dose modulation,iterative reconstruction, and/or weight-based dosing when appropriate toreduce radiation dose to as low as reasonably achievable. Dictated by Pedro Pablo Bolanos MD @ 01/15/2025 5:25:43 AM (Electronically Signed) Cesar Rain MD CT Final R esult * SCAN-CARDIAC STRIP (01/15/2025 4:24 AM CDT) Scanner OTHER Final Result * (ABNORMAL) Protime-INR - PHOTOGRAPHIC DOUBLE (01/15/2025 4:11 AM CDT) Only the most recent of3 resultswithin the time period is included. INR 1.2 <1.3 01/15/2025 4:38 AM CDT [facility] PROTIME 14.0(H) 10.6 - 12.4 sec 01/15/2025 4:38 AM CDT [facility] Blood BLOOD SPECIMEN / Unknown Venipuncture / Unknown 01/15/2025 4:11 AM CDT 01/15/2025 4:[address] [facility] LABORATORY - 01/15/2025 4:38 AM CDT Therapeutic Range 2.0-3.0 for most anticoagulated patients 2.5-3.5 or 4.0 for high risk patients The INR is only used for patients on stable oral anticoagulant therapy. It makes no significant contribution to the diagnosis or treatment of patients whose Protime is prolonged for other reasons. INR results are increased when heparin levels exceed 1.0 U/mL, which corresponds to an aPTT >125 seconds if the patient is on UFH. us Shimon Martínez MD HEMATOLOGY Final Res ult [facility] [address] [place] [address], * (ABNORMAL) Comprehensive Metabolic Panel - PHOTOGRAPHIC DOUBLE (01/15/2025 4:11 AM CDT) SODIUM 138 136 - 145 mmol/L 01/15/2025 5:10 AM CDT [facility] POTASSIUM 3.6 3.5 - 5.1 mmol/L 01/15/2025 5:10 AM CDT [facility] CHLORIDE 108(H) 98 - 107 mmol/L 01/15/2025 5:10 AM CDT [facility] CO2,TOTAL 17(L) 22 - 29 mmol/L 01/15/2025 5:10 AM CDT [facility] ANION GAP 13 5 - 18 01/15/2025 5:10 AM [facility] GLUCOSE 213(H) 70 - 99 mg/dL 01/15/2025 5:10 AM [facility] CALCIUM 7.1(L) 8.8 - 10.4 mg/dL 01/15/2025 5:10 AM [facility] BUN 21 8 - 23 mg/dL 01/15/2025 5:10 AM [facility] CREATININE 0.83 0.50 - 0.90 mg/dL 01/15/2025 5:10 AM [facility] BUN/CREAT RATIO 25(H) 10 - 20 5:10 AM [facility] eGFR 73(L) >90 mL/min/1.7 3m2 01/15/2025 5:10 AM [facility] Comment:As of 2021, eG FR is calculated by the CKD-EPI creatinine equation without race adjustment. eGFR can be influenced by muscle mass, exercise, and diet. The reported eGFR is an estimation only and is only applicable if the renal function is stable. ALBUMIN 2.7(L) 4.0 - 4.9 g/dL 01/15/2025 5:10 AM [facility] PROTEIN,TOTAL 4.0(L) 6.0 - 8.0 g/dL 01/15/2025 5:10 AM [facility] BILIRUBIN,TOTAL 0.2 0.0 - 1.2 mg/dL 01/15/2025 5:10 AM [facility] TRAL LAB[facility]AT[facility] ALK PHOSPHATASE 45 35 - 104 IU/L 01/15/2025 5:10 AM [facility] TRA LABORATORY ALT (SGPT) 9(L) 10 - 35 IU/L 01/15/2025 5:10 AM [facility] AST (SGOT) 15 10 - 35 IU/L 01/15/2025 5:10 AM [facility] Blood BLOOD SPECIMEN / Unknown Venipuncture / Unknown 01/15/2025 4:11 AM CDT 01/15/2025 4:22 AM CDT us Shimon Martínez MD CHEMISTRY Final Res ult [facility] [address] [place] [address], [place] * (ABNORMAL) CBC WITH AUTO DIFFERENTIAL (01/15/2025 4:10 AM CDT) Only the most recent of2 resultswithin the time period is included. [facility] WHITE BLOOD COUNT 5.3 4.5 - 11.0 thou/cu mm 01/15/2025 4:48 AM CDT [facility] RED BLOOD COUNT 2.02(L) 4.00 - 5.20 mil/cu mm 01/15/2025 4:48 AM CDT [facility] HEMOGLOBIN 5.1(LL) 12.0 - 16.0 g/dL 01/15/2025 4:48 AM CDT [facility] HEMATOCRIT 16.9(L) 33.0 - 51.0 % 01/15/2025 4:48 AM CDT [facility] MCV 84 80 - 100 fL 01/15/2025 4:48 AM CDT [facility] MCH 25.2(L) 26.0 - 34.0 pg 01/15/2025 4:48 AM CDT [facility] MCHC 30.2(L) 32.0 - 36.0 g/dL 01/15/2025 4:48 AM CDT [facility] RDW 17.6(H) 11.5 - 15.5 % 01/15/2025 4:48 AM CDT [facility] PLATELET COUNT 282 140 - 440 thou/cu mm 01/15/2025 4:48 AM CDT [facility] MPV 8.9 6.5 - 11.0 fL 01/15/2025 4:48 AM CDT [facility] NRBC 0.0 % 01/15/2025 4:48 AM CDT [facility] ABS NRBC 0.0 thou /cu mm 01/15/2025 4:48 AM CDT [facility] % NEUT 65.1 % 01/15/2025 4:48 AM CDT [facility] % LYMPH 28.8 % 01/15/2025 4:48 AM CDT [facility] % MONO 4.5 % 01/15/2025 4:48 AM CDT [facility] % EOS 0.8 % 01/15/2025 4:48 AM CDT [facility] % BASO 0.4 % 01/15/2025 4:48 AM CDT [facility] % IMMATURE GRAN (METAS,MYELOS,NC OS) 0.4 % 01/15/2025 4:48 AM CDT [facility] ABSOLUTE NEUTROPHILS 3.5 1.7 - 7.0 thou/cu mm 01/15/2025 4:48 AM CDT [facility] ABSOLUTE LYMPHOCYTES 1.5 0.9 - 2.9 thou/cu mm 01/15/2025 4:48 AM CDT [facility] ABSOLUTE MONOCYTES 0.2 <0.9 thou/cu mm 01/15/2025 4:48 AM CDT [facility] ABSOLUTE EOSINOPHILS 0.0 <0.5 thou/cu mm 01/15/2025 4:48 AM CDT [facility] ABSOLUTE BASOPHILS 0.0 <0.3 thou/cu mm 01/15/2025 4:48 AM CDT [facility] ABSOLUTE IMMATURE GRANULOCYTES(MET ,MYELOS,PROS) 0.0 <0.3 thou/cu mm 01/15/2025 4:48 AM CDT [facility] Blood BLOOD SPECIMEN / Unknown Venipuncture / Unknown 01/15/2025 4:10 AM CDT 01/15/2025 4:22 AM CDT us Shimon Martínez MD HEMATOLOGY Final Res ult [facility] [address] [place] [address], [place] * (ABNORMAL) BLOOD GAS,VENOUS (01/15/2025 4:10 AM CDT) PH, VENOUS 7.29(L) 7.32 - 7.43 01/15/2025 4:26 AM CDT [facility] PCO2, VENOUS 37(L) 41 - 51 mmHg 01/15/2025 4:26 AM CDT [facility] PO2, VENOUS 25(L) 35 - 40 mmHg 01/15/2025 4:26 AM CDT [facility] HCO3,VENOUS 18(L) 22 - 29 mmol/L 01/15/2025 4:26 AM CDT [facility] BASE EXCESS, VENOUS, POCT -8.1(L) -2.0 - 3.0 01/15/2025 4:26 AM CDT [facility] O2 SATURATION, VENOUS 30(L) 70 - 75 % 01/15/2025 4:26 AM CDT [facility] PATIENT TEMPERATURE 37.0 Degrees C 01/15/2025 4:26 AM CDT [facility] Blood VENOUS BLOOD SPECIMEN / Unknown Venipuncture / Unknown 01/15/2025 4:10 AM CDT 01/15/2025 4:22 AM CDT us Shimon Martínez MD CHEMISTRY Final Res ult [facility] [address] [place] [address], [place] * 12 Lead EKG - PHOTOGRAPHIC DOUBLE (01/15/2025 3:27 AM CDT) Interpretation Sinus tachycardia Nonspecific ST abnormality QTcB >= 480 msec Abnormal ECG When compared with ECG of 20-Aug-2017 17:50, Premature ventricular complexes are no longer Present Vent. rate has increased by 43 bpm BEYOND NOW Ventricular Rate 114 BPM BEYOND NOW Atrial Rate 114 BPM BEYOND NOW P-R Interval 166 ms BEYOND NOW QRS Duration 74 ms BEYOND NOW QT 354 ms BEYOND NOW QTc 487 ms BEYOND NOW P [place] 31 degrees BEYOND NOW R [place] 29 degrees BEYOND NOW T [place] 41 degrees BEYOND NOW 01/15/2025 3:27 AM CDT 01/16/2025 3:47 PM CDT Shimon Martínez MD EKG ORD Final Res ult BEYOND NOW [place], [place] * (ABNORMAL) GLUCOSE METER (01/15/2025 3:05 AM CDT) GLUCOSE METER 253(H) 65 - 100 mg/dL 01/15/2025 3:11 AM CDT [facility] Blood BLOOD SPECIMEN / Unknown 01/15/2025 3:05 AM CDT 01/15/2025 3:11 AM CDT [facility] CHEMISTRY Final Re sult [facility] [address] [place] [address], [place] * TRANSFUSE RBC (NURSE COMMUNICATION ORDER) (01/14/2025 8:02 PM CDT) Blood BLOOD SPECIMEN / Unknown Edilberto Grossman MD NURSING BLOOD BANK Felicity l Result * TROPONIN T ONE TIME (01/14/2025 4:17 PM CDT) TROPONIN T HS 10 6-10 ng/L ng/L 01/14/2025 4:53 PM CDT [facility] Blood BLOOD SPECIMEN / Unknown Non-Lab Venipuncture / Unknown 01/14/2025 4:17 PM CDT 01/14/2025 4:26 PM CDT Narrative [facility] [employer] [facility] LABORAT[facility] - 01/14/2025 4:53 PM CDT hs-cTnT (Elecsys Troponin T Gen 5) concentration (s) above the sex-specific 99th percentile (16 ng/L or greater for males or 11 ng/L or greater for females) are indicative of myocardial injury. If initial hs-cTnT <=100 ng/L at presentation, a 0h/2h ABSOLUTE (ng/L) delta change (rising or falling) of >=10 ng/L suggests a significant change, whereas a 0h/2h delta change <=3 ng/L suggests no significant change. If initial hs-cTnT >100 ng/L at presentation, a 0h/2h/ RELATIVE (percent, %) delta change of 20% is suggested to distinguish patients with acute vs. chronic myocardial injury. There are multiple etiologies that can cause hs-cTnT increases above the 99th percentile (myocardial injury) other than acute myocardial infarction. Clinical context and careful clinical evaluation are critical for diagnosis and risk-stratification. The diagnosis of acute myocardial infarction requires a rising and/or falling pattern in hs-cTnT concentrations with at least one value above the sex-specific 99th percentile PLUS at least one of the following clinical criteria: ischemic symptoms, new or presumed new significant ST-T wave changes or new LBBB, development of pathological Q waves, imaging evidence of new loss of viable myocardium or new regional wall motion abnormality, or identification of intracoronary atherothrombosis or an acute angiographic culprit on coronary angiography. In appropriate low-risk patients with a non-ischemic electrocardiogram without active chest pain with a symptom onset >3-hours without recurrence, a single initial hs-cTnT<6 ng/L identifies patient with a very low risk in emergency department patient population. us Edilberto Grossman MD CHEMISTRY Final R esult [facility]-C[facility]TRAL LABORATORY [address] [place] [address], * TYPE AND SCREEN ONLY (01/14/2025 4:17 PM CDT) ABORH O Rh Positive 01/14/2025 5:12 PM CDT [facility] [employer] LAB-CENTRAL LAB BLOOD BANK ANTIBODY SCREEN Negative Negative 01/14/2025 5:12 PM CDT [facility] LAB BLOOD BANK SPECIMEN EXPIRATION DATE/TIME 01/17/25 23:59 01/14/2025 5:12 PM CDT [facility] LAB BLOOD BANK Blood BLOOD SPECIMEN / Unknown Non-Lab Venipuncture / Unknown 01/14/2025 4:17 PM CDT 01/14/2025 4:27 PM CDT Edilberto Grossman MD BLOOD BANK Final R esult [facility] LAB BLOOD BANK [address] [place] [address], [place] [phone] * (ABNORMAL) HEPATIC FUNCTION PANEL (01/14/2025 4:17 PM CDT) ALBUMIN 3.8(L) 4.0 - 4.9 g/dL 01/14/2025 4:53 PM CDT [facility] TR[facility] LABORATORY PROTEIN,TOTAL 6.1 6.0 - 8.0 g/dL 01/14/2025 4:53 PM CDT [facility] LAB[facility] BILIRUBIN,TOTAL 0.2 0.0 - 1.2 mg/dL 01/14/2025 4:53 PM CDT [facility] LAB[facility] BILIRUBIN,DIRECT 0.2 0.0 - 0.2 mg/dL 01/14/2025 4:53 PM CDT [facility] TR[facility] LABORATORY BILIRUBIN,INDIRE CT 0.0(L) 0.2 - 0.8 mg/dL 01/14/2025 4:53 PM CDT [facility] TR[facility] LABORAT[facility] ALK PHOSPHATASE 68 35 - 104 IU/L 01/14/2025 4:53 PM CDT [facility] ALT (SGPT) 12 10 - 35 IU/L 01/14/2025 4:53 PM CDT [facility] AST (SGOT) 19 10 - 35 IU/L 01/14/2025 4:53 PM CDT [facility] Blood BLOOD SPECIMEN / Unknown Non-Lab Venipuncture / Unknown 01/14/2025 4:17 PM CDT 01/14/2025 4:26 PM CDT us Edilberto Grossman MD CHEMISTRY Final R esult [facility] [address] [place] [id number], [place] * Potassium TODAY (01/12/2025 11:19 AM CDT) POTASSIUM 4.1 3.5 - 5.1 mmol/L 01/12/2025 12:08 PM CDT [facility] Blood BLOOD SPECIMEN / Unknown Venipuncture / Unknown 01/12/2025 11:19 AM CDT 01/12/2025 11:25 AM CDT us Verónica Ohara MD CHEMISTRY Final Result Performing Organization Address [facility] Co de Phone Number [facility] [address] [address], [place] * (ABNORMAL) Creatinine TODAY (01/12/2025 11:19 AM CDT) eGFR 78(L) >90 mL/min/1.7 3m2 01/12/2025 12:08 PM CDT [facility] Comment:As of 2021, eG FR is calculated by the CKD-EPI creatinine equation without race adjustment. eGFR can be influenced by muscle mass, exercise, and diet. The reported eGFR is an estimation only and is only applicable if the renal function is stable. CREATININE 0.78 0.50 - 0.90 mg/dL 01/12/2025 12:08 PM CDT [facility] Blood BLOOD SPECIMEN / Unknown Venipuncture / Unknown 01/12/2025 11:19 AM CDT 01/12/2025 11:25 AM CDT us Verónica Ohara MD CHEMISTRY Final Result Performing Organization Address City/[facility]/ZIP Co de Phone Number [facility] [address] [address], [place] * SCAN-CARDIAC STRIP (01/12/2025 12:44 AM CDT) us Scanner OTHER Final Result * COLONOSCOPY (01/11/2025 1:29 PM CDT) 01/11/2025 1:29 PM CDT Narrative Transcriptions Shimon Pearl MD - 01/11/2025 2:16 PM CDT [facility] Patient Name: Rosemarie Uribe Procedure Date: 01/11/2025 Gender: Female Date of : 1945 Admit Type: Inpatient Procedure: Colonoscopy Proceduralist: Shimon Pearl MD - [facility] Indications/Pre-Op Diagnosis: GI bleeding Medications: MAC Procedure Description: The patient had risks, benefits and alternatives explained to andgave informed consent. The patient had a stable cardiopulmonary status and judged an adequate candidate for sedation. The endoscope [id number] was passed through the anus andadvanced to the cecum, identified by appendiceal orifice and ileocecal valve.The colonoscopy was performed without difficulty. The patient toleratedthe procedure well. The quality of the bowel preparation was adequate in some areas and fair in some areas and 15 percent obscured. Theileocecal valve and the appendiceal orifice were photographed. Complications: No immediate complications. Estimated Blood Loss & Specimen: Estimated blood loss: none. Findings: There was left-sided diverticulosis, but the exam was otherwisewithout abnormality. Internal hemorrhoids were seen. Impressions/Post-Op Diagnosis: Left-sided diverticulosis Internal hemorrhoids Recommendation: - Resume regular diet - Consider outpt SB video capsule study - Follow Hgb Shimon Pearl MD 01/11/2025 2:16:34 PM This report has been signed electronically. Note Initiated On: 01/11/2025 1:29 PM us Shimon Pearl MD PROCEDURE ORD Final Result * SCAN-CARDIAC STRIP (01/11/2025 1:07 AM CDT) us Scanner OTHER Final Result * ENDOSCOPY (01/10/2025 3:51 PM CDT) 01/10/2025 3:51 PM CDT Narrative Transcriptions Dae, Shimon Muhammad MD - 01/10/2025 4:57 PM CDT [facility] Patient Name: Rosemarie Uribe Procedure Date: 01/10/2025 Gender: Female Date of : 1945 Admit Type: Inpatient Procedure: Upper GI endoscopy Proceduralist: Shimon Pearl MD - [facility] Referring MD: Lux Lambert Indications/Pre-Op Diagnosis: Abnormal imaging of the esophagus Medications: MAC Procedure Description: Risk of bleeding, infection, perforation, need for surgery and alternatives discussed. The endosocpe [id number] was introduced through the mouth, and advanced to the second part of duodenum. The upper GI endoscopy was accomplished without difficulty. The patient tolerated the procedure well. Complications: No immediate complications. Estimated Blood Loss & Specimen: None Findings: Esophagus - tortuous with decreased peristalsis and angulation of the esophagus in the distal portion. The mucosa was normal throughoutwith no esophagitis, stricture or rings seen. No biopsies were taken andno dilation carried out. Stomach - there was a very large, mostly paraesophageal, hernia witha small sliding component, with most of the stomach displaced into the chest. This did cause angulation of the distal esophagus. Duodenum - normal. Impressions/Post-Op Diagnosis: Decreased esophageal motility with distal angulation due to a large paraesophageal hernia Nothing identified in this exam that would account for the esophageal findings on CT Large paraesophageal hernia Recommendation: Okay to resume diet Surgical consultation to consider hernia repair Shimon Pearl MD 01/10/2025 4:57:38 PM This report has been signed electronically. Note Initiated On: 01/10/2025 3:51 PM us Shimon Pearl MD PROCEDURE ORD Final Result * ECHO TTE COMPLETE WO CONTRAST (01/10/2025 11:01 AM CDT) AORTIC VALVE MEAN PG 5 mmHg EJECTION FRACTION 65 % LVEDD 4.4 cm PEAK TR VELOCITY 3.2 m/s Anatomical Region Laterality Modality Ultrasound 01/10/2025 9:10 AM CDT Narrative 01/10/2025 11:26 AM CDT ECHOCARDIOGRAM ROSEMARIE URIBE : 1945 79 years Study Date: 01/10/2025 9:10:03 AM Gender: F BP: 120/65 mmHg Height: 163.00 cm BSA: 1.80 m Weight: 74.00 kg Tech: PAUL Referring MD: ZOHREH LYNNE Site: [facility] Reading Location: [facility] Patient Location: Inpatient. Procedure: 2D, Color Doppler and Spectral Doppler. Indication for study: Syncope, Pt with large hiatal hernia compressing left atrium Cardiac Rhythm: Regular.Study quality: Good. Final Impressions: 1. Normal left ventricular size, normal wall thickness, normal global systolic function, calculated EF of 65 %. 2. Right ventricular cavity size is mildly enlarged, global systolic RV function is normal. 3. Tricuspid valve is myxomatous, moderate tricuspid regurgitation. 4. The inferior vena cava is dilated, respiratory size variation greater than 50%. 5. Mildly increased estimated pulmonary pressures by tricuspid regurgitation velocity and right atrial pressure (41 mmHg plus RAP). Chamber Sizes and Function Normal left ventricular size, normal wall thickness, normal global systolic function, calculated EF of 65 %. No resting regional wall motion abnormality visualized. Left atrial size is normal. Right ventricular cavity size is mildly enlarged, global systolic RV function is normal. The right atrium is normal. Right atrial volume index is 34 ml/m . The pulmonary artery is of normal size and origin. The sinus of Valsalva is normal sized. The ascending aorta is normal sized. Valves, RV Pressures and Diastolic Function The aortic valve is trileaflet, no stenosis and no regurgitation. The mitral valve is normal in structure, trace mitral regurgitation. Indeterminate pattern of LV diastolic filling. The tricuspid valve is myxomatous, moderate tricuspid regurgitation. The tricuspid regurgitant velocity is 3.2 m/s, the estimated right ventricular systolic pressure is 41 mmHg plus right atrial pressure. There is mildly increased estimated pulmonary pressure by tricuspid regurgitation velocity and right atrial pressure. The pulmonic valve is normal. Trace pulmonary regurgitation. Masses, Effusion, Shunts There is no pericardial effusion. The inferior vena cava is dilated, respiratory size variation greater than 50%. No left to right shunting was detected by limited color flow Doppler interrogation of the interatrial septum. MEASUREMENTS AND CALCULATIONS 2-D Measurements and LV Function: LVID (d) 4.4 cm Planimetered EF 65 % LVID (s) 2.5 cm LV FS% (2D) 43 % IVS (d) 0.9 cm LVOT diameter 1.9 cm LVPW (d) 0.8 cm HR 73 bpm Ao Sinus 3.3 cm LA Vol index 25 ml/m2 Ao Sinus ULN 3.7 cm RA Vol index 34 ml/m2 Asc Ao 3.8 cm Asc Ao ULN 4.0 cm Diastology: Mitral Tissue Doppler E Peak 1.0 m/s e', Septum 0.10 m/s A Peak 1.0 m/s e', Lateral 0.11 m/s E/A 1.0 E/e' Average 9.76 DT 207 msec Aortic Valve: Vmax 1.5 m/s OCLE (V) 2.53 cm VTI 0.33 m COLE (I) 2.76 cm LVOT V max 1.3 m/s Max PG 9 mmHg LVOT VTI 0.32 m Mean PG 5 mmHg SV 91 ml Dim Index 0.97 SV index 50 ml/m CO 6.6 l/min CI 3.7 l/min/m Mitral Valve: MVA 3.7 cm MV P 1/2 60 msec Tricuspid Valve and estimated PA pressures: TR Vmax 3.2 m/s TAPSE 3.2 cm TR maxG 41 mmHg . This study was interpreted by an [facility] accredited facility. Final Procedure Note Kavitha Chavez MD - 01/10/2025 ECHOCARDIOGRAM ROSEMARIE URIBE : 1945 79 years Study Date: 01/10/2025 9:10:03 AM Gender: F BP: 120/65 mmHg Height: 163.00 cm BSA: 1.80 m Weight: 74.00 kg Tech: PAUL Referring MD: ZOHREH LYNNE Site: [facility] Reading Location: [facility] Patient Location: Inpatient. Procedure: 2D, Color Doppler and Spectral Doppler. Indication for study: Syncope, Pt with large hiatal hernia compressingleft atrium Cardiac Rhythm: Regular.Study quality: Good. Final Impressions: 1. Normal left ventricular size, normal wall thickness, normal globalsystolic function, calculated EF of 65 %. 2. Right ventricular cavity size is mildly enlarged, global systolic RVfunction is normal. 3. Tricuspid valve is myxomatous, moderate tricuspid regurgitation. 4. The inferior vena cava is dilated, respiratory size variation greaterthan 50%. 5. Mildly increased estimated pulmonary pressures by tricuspidregurgitation velocity and right atrial pressure (41 mmHg plus RAP). Chamber Sizes and Function Normal left ventricular size, normal wall thickness, normal globalsystolic function, calculated EF of 65 %. No resting regional wall motionabnormality visualized. Left atrial size is normal. Right ventricularcavity size is mildly enlarged, global systolic RV function is normal. Theright atrium is normal. Right atrial volume index is 34 ml/m . Thepulmonary artery is of normal size and origin. The sinus of Valsalva isnormal sized. The ascending aorta is normal sized. Valves, RV Pressures and Diastolic Function The aortic valve is trileaflet, no stenosis and no regurgitation. Themitral valve is normal in structure, trace mitral regurgitation.Indeterminate pattern of LV diastolic filling. The tricuspid valve ismyxomatous, moderate tricuspid regurgitation. The tricuspid regurgitantvelocity is 3.2 m/s, the estimated right ventricular systolic pressure is41 mmHg plus right atrial pressure. There is mildly increased estimatedpulmonary pressure by tricuspid regurgitation velocity and right atrialpressure. The pulmonic valve is normal. Trace pulmonary regurgitation. Masses, Effusion, Shunts There is no pericardial effusion. The inferior vena cava is dilated,respiratory size variation greater than 50%. No left to right shunting wasdetected by limited color flow Doppler interrogation of the interatrialseptum. MEASUREMENTS AND CALCULATIONS 2-D Measurements and LV Function: LVID (d) 4.4 cm Planimetered EF 65 % LVID (s) 2.5 cm LV FS% (2D) 43 % IVS (d) 0.9 cm LVOT diameter 1.9 cm LVPW (d) 0.8 cm HR 73 bpm Ao Sinus 3.3 cm LA Vol index 25 ml/m2 Ao Sinus ULN 3.7 cm RA Vol index 34 ml/m2 Asc Ao 3.8 cm Asc Ao ULN 4.0 cm Diastology: Mitral Tissue Doppler E Peak 1.0 m/s e', Septum 0.10 m/s A Peak 1.0 m/s e', Lateral 0.11 m/s E/A 1.0 E/e' Average 9.76 DT 207 msec Aortic Valve: Vmax 1.5 m/s COLE (V) 2.53 cm VTI 0.33 m COLE (I) 2.76 cm LVOT V max 1.3 m/s Max PG 9 mmHg LVOT VTI 0.32 m Mean PG 5 mmHg SV 91 ml Dim Index 0.97 SV index 50 ml/m CO 6.6 l/min CI 3.7 l/min/m Mitral Valve: MVA 3.7 cm MV P 1/2 60 msec Tricuspid Valve and estimated PA pressures: TR Vmax 3.2 m/s TAPSE 3.2 cm TR maxG 41 mmHg . This study was interpreted by an [facility] accredited facility. Final us Zohreh Lnyne MD ECHO ORD Final Resu lt * (ABNORMAL) CBC W PLT NO DIFF (01/10/2025 6:35 AM CDT) WHITE BLOOD COUNT 10.6 4.5 - 11.0 thou/cu mm 01/10/2025 7:33 AM CDT [facility] RED BLOOD COUNT 3.54(L) 4.00 - 5.20 mil/cu mm 01/10/2025 7:33 AM CDT [facility] HEMOGLOBIN 8.5(L) 12.0 - 16.0 g/dL 01/10/2025 7:33 AM T [facility] HEMATOCRIT 27.7(L) 33.0 - 51.0 % 01/10/2025 7:33 AM CDT [facility] MCV 78(L) 80 - 100 fL 01/10/2025 7:33 AM CDT [facility] MCH 24.0(L) 26.0 - 34.0 pg 01/10/2025 7:33 AM CDT [facility] MCHC 30.7(L) 32.0 - 36.0 g/dL 01/10/2025 7:33 AM T [facility] RDW 17.2(H) 11.5 - 15.5 % 01/10/2025 7:33 AM CDT [facility] PLATELET COUNT 398 140 - 440 thou/cu mm 01/10/2025 7:33 AM CDT [facility] MPV 8.9 6.5 - 11.0 fL 01/10/2025 7:33 AM CDT [facility] NRBC 0.0 % 01/10/2025 7:33 AM CDT [facility] ABS NRBC 0.0 thou /cu mm 01/10/2025 7:33 AM CDT [facility] Blood BLOOD SPECIMEN / Unknown Venipuncture / Unknown 01/10/2025 6:35 AM CDT 01/10/2025 7:15 AM CDT us Zohreh Lynne MD HEMATOLOGY Final Resu lt [facility] [address] [place] [address], [place] * SCAN-CARDIAC STRIP (01/10/2025 12:52 AM CDT) us Scanner OTHER Final Result * SCAN-RADIOLOGY REPORT (01/09/2025 12:00 AM CDT) Only the most recent of2 resultswithin the time period is included. Anatomical Region Laterality Modality Other us Scanner OTHER Final Result * SCAN-CT INTERPRETATION (01/09/2025 12:00 AM CDT) Only the most recent of3 resultswithin the time period is included. Anatomical Region Laterality Modality Other us Scanner OTHER Final Result * (ABNORMAL) XR DXA BONE DENSITY 2 [...] to assess therapeutic efficacy. Jacquelyn Rees PA-C [facility] 06/02/2023 Narrative 06/02/2023 5:01 PM CDT For Patients: Results are automatically released to your [facility] account once available, in compliance with federal regulations. This means that you may see your results before your provider has had a chance to review them. Please allow 2-3 business days for your provider to comment on the results. XR DXA Bone Mineral Density (BMD) EXAM LOCATION: [address] [address] PATIENT NAME: Rosemarie Uribe DATE OF : 1945 EXAM DATE: 06/02/2023 [...] two scanners are made by the same head of training and development. 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 Healthcare Directive 07/03/2019 11:03 AM 1 08/16/2018 * Full Code (Latest Code Status on File) Date Activated Date Inactivated Comments 01/14/2025 7:33 PM 01/17/2025 6:23 PM Question Answer Comments Code Status Discussion: Reviewed Preferences * Full Code Date Activated Date Inactivated Comments 01/10/2025 12:17 AM 01/12/2025 2:38 PM Question Answer Comments Code Status Discussion: Reviewed Preferences * Full Code Date Activated Date Inactivated Comments 08/27/2017 12:15 PM 08/27/2017 4:44 PM * Full Code Date Activated Date Inactivated Comments 08/27/2017 7:42 AM 08/27/2017 12:15 PM * Full Code Date Activated Date Inactivated Comments 08/20/2017 7:51 PM 08/21/2017 12:45 PM Care Teams Manifest Clerk Relationship Specialty Start Date End Date [place] [address] PCP - General 09/06/06 Jeet Martinez [address] [place] [address] Ophthalmology Surgery 08/18/12 Kelvin Sandoval MD [address] [facility] [address] [place] [address] Endocrinology 08/28/22 Specialists, [facility] [address] [facility] [address] [place] [address] 01/15/25
[2025-01-19] MEDS: NORepinephrine INFUSION 4,000 MCG/250 ML PLAST..BAG 30.62 MCG IVPB (06:53)
[2025-01-19 07:09] LABS: HCO3 VBG 19 mmol/L (21-28); PCO2 VBG 32 mmHG (40-50); PO2 VBG 44.7 mmHG (25-47); pH VBG 7.377 (7.32-7.43)
[2025-01-19] MEDS: 0.9 % SODIUM CHLORIDE 1000 ml 1,000 ML IV (07:10)
[2025-01-19 07:11] LABS: Basophils Percent Auto 0.3 % (0.0-3.0); Eosinophils Percent Auto 0.2 % (0.0-7.0); Hematocrit 15.5 % (33.0-51.0); Immature Granulocytes Pct Auto 1.4 %; Lymphocytes Percent Auto 12.7 % (20-44); Mean Corpuscular HGB Conc 31 gm/dL (32-36); Mean Corpuscular Hemoglobin 27 pg (26-34); Mean Corpuscular Volume 87 fL (80-100); Monocytes Percent Auto 4.4 % (0.0-11.0); Platelet Count* 316 K/uL (140-440); Red Blood Count 1.79 m/uL (4.00-5.20); White Blood Count* 14.36 K/uL (4.50-11.00)
--- NOTE | 2025-01-19 07:14 | ED.GENADULT ---
HPI - General Adult General Chief complaint: GI Bleed Stated complaint: GI BLEED Time Seen by Provider: 01/19/25 07:18 Source: patient and EMS Mode of arrival: EMS History of Present Illness HPI narrative: 79-year-old female presents with suspicion for upper GI bleed. Patient has been having black tarry stools for about 10 days but especially escalating over the past day. It looks like she had an outpatient visit through [facility] on the . She has a known history of hiatal hernia. It looks like she was referred for surgery for this and has a scheduled capsule endoscopy ordered as well. She was started on Protonix based on what I can see in that visit. Patient reports that the bleeding has worsened since that visit. Daughter called 911 today because the patient was very weak, pale, unable to stand and care for self complaining of worsening abdominal pain. No injury or trauma. Is not anticoagulated. Denies prior history of GI surgeries I do see a history of esophagitis and upper GI bleed in her chart in the past. Patient reports mid abdominal pain, not severe, denies chest pain. Feels generally weak but no specific shortness of breath, no recent fever. No recent surgical procedure. Rapid review of past medical history showing hypothyroidism, hiatal hernia. Nonsmoker. Lives independently. Daughter on way. ROS notable for the abdominal pain, GI and generalized symptoms as above, otherwise denies times 12 systems. Related Data Allergies Allergy/AdvReac Type Severity Reaction Status Date / Time No Known Drug Allergies Allergy Verified 01/09/25 20:08 [facility] Social History Smoking Status: Unknown if ever smoked Exam Narrative: Exam Narrative: Vitals on arrival blood pressure 75/58 pulse of 90, O2 sats 98% on room air. Respiratory rate of 20, on EMS a quite min. Not charted in our system Levophed quickly started. All blood pressures listed are reflective of Levophed Const: Vital Signs, click to edit/add: Vital Signs - 24 hr 01/19/25 06:54 01/19/25 06:55 01/19/25 07:00 Temperature 96.6 F L Pulse Rate Pulse Rate [Pulse Oximeter] 96 Respiratory Rate 18 15 33 H Blood Pressure Blood Pressure [Ri ght Upper Arm] 91/56 L Pulse Oximetry 94 Oxygen Delivery Me thod Room Air Oxygen Flow Rate 01/19/25 07:01 01/19/25 07:07 01/19/25 07:10 Temperature Pulse Rate 105 H 110 H Pulse Rate [Pulse Oximeter] Respiratory Rate 17 52 H Blood Pressure 114/72 128/73 Blood Pressure [Ri ght Upper Arm] Pulse Oximetry 87 L 84 L Oxygen Delivery Me thod Oxygen Flow Rate 01/19/25 07:11 01/19/25 07:15 01/19/25 07:16 Temperature Pulse Rate 100 107 H 106 H Pulse Rate [Pulse Oximeter] Respiratory Rate 16 18 18 Blood Pressure 142/53 H 107/63 Blood Pressure [Ri ght Upper Arm] Pulse Oximetry 97 49 L 69 L Oxygen Delivery Me thod Oxygen Flow Rate 01/19/25 07:17 01/19/25 07:20 01/19/25 07:21 Temperature Pulse Rate 103 H 101 H 98 Pulse Rate [Pulse Oximeter] Respiratory Rate 17 17 18 Blood Pressure 127/65 Blood Pressure [Ri ght Upper Arm] Pulse Oximetry 93 93 99 Oxygen Delivery Me thod Oxygen Flow Rate 01/19/25 07:22 01/19/25 07:26 01/19/25 07:26 Temperature 97.0 F L Pulse Rate 94 86 Pulse Rate [Pulse Oximeter] Respiratory Rate 18 9 L Blood Pressure 93/31 L Blood Pressure [Ri ght Upper Arm] Pulse Oximetry 96 97 98 Oxygen Delivery Me thod OxyMask Oxygen Flow Rate 5 01/19/25 07:30 01/19/25 07:31 01/19/25 07:36 Temperature Pulse Rate 89 89 91 Pulse Rate [Pulse Oximeter] Respiratory Rate 16 17 23 Blood Pressure 116/63 132/78 Blood Pressure [Ri ght Upper Arm] Pulse Oximetry 86 L 98 100 Oxygen Delivery Me thod Oxygen Flow Rate Common normals: alert Other: Appears very pale, weak. Mentating, answering questions. HENMT: Common normals: normocephalic and head/scalp atraumatic Head and scalp: normocephalic and atraumatic Other: Dry membranes Eye: Other: Pale conjunctiva, normal visual gaze and tracking Neck & C-Spine: Common normals: no lymphadenopathy General: normal visual inspection Resp: Common normals: normal respiratory effort and no use of accessory muscles Effort & inspection: able to speak in complete sentences Cardio: Common normals: regular rate, regular rhythm, S1 normal heart sound, S2 normal heart sound and no murmurs Rate: regular rate Rhythm: regular rhythm Heart sounds: S1 normal and S2 normal GI: Common normals: Normal to inspection, nondistended, normoactive bowel sounds present Other: Grossly melanotic stools noted. No bright red blood per rectum. Abdomen is mildly diffusely tender through the epigastrium. No obvious mass. Extremity: Other: Moves all extremities on command. EMS reports that they were able to get her to pivot transfer onto the cot as well. Neuro: Sensorium/orientation: alert Motor exam: strength 5/5 throughout Psych: Attitude: engaged Activity/motor behavior: appropriate eye contact Insight: insight good Judgement: judgment good Skin: Common normals: no rashes or lesions noted General skin exam: no rashes or lesions noted Course Course ED Course: EMS had called prior to patient arrival. I advised them to give 2 g of TXA and start normal saline bolus on route. This was done. They also administered 4 mg of Zofran prior to arrival. They report that initial blood pressure was about 50 systolic. I see on the monitors that after fluids the blood pressure is up to 75/58 pulse has improved to 90 with O2 sats of 98% on room air. Patient attended immediately upon arrival and noted to be in critical condition. After very fast primary survey, orders were given for Levophed, 2nd IV, normal saline bolus, 1 unit of packed red cells, IV Protonix and let the team know that I would be immediately outside the door calling for transfer. Called for transfer began within 5 minutes of arrival. Unfortunately, patient's preferred site which is within the [facility] system had no ICU beds available, [facility] may have 1 but on a significant delay. I ceased communication and told and I would call back if there services were still needed. I then attempted to contact [facility] directly, after several bounce around eventually was able to talk to the transfer center and was still awaiting call back when I elected to quickly than pivot to calling [facility]. Initial calls were started at 649 to patient's preferred sites, had a pin was contacted at 7:03 a.m.. I was able to speak with ED physician Dr. Hernandez, who advised that I could send the patient directly to the ED. following this brief communication, I went back and reassessed the patient and see that her blood pressure has improved to the 120s over 50s on the Levophed, will decrease from 0.5-0.3. Blood should be here very shortly. Or Protonix will be given IV just based on timing. Third nurse is now calling for EMS transport. I spoke with patient regarding the necessity for transfer. 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 Reevaluation(s) Reevaluation #1: Patient transferred at 7:45 a.m., slight delay for EMS arrival. Protonix was given, 1st unit was about half transfused of blood, 1 L of IV fluid was given, 0.5 mg of Dilaudid, 4 of Zofran and 2 g of TXA. 45 minutes of critical care spent caring for patient where I was unable to care for any of the other multiple patients in the ED. Vital Signs Vital signs: Initial Vital Signs Temperature 96.6 F L 01/19/25 06:54 Temperature Source Temporal Artery Scan 01/19/25 06:54 Pulse Rate 96 01/19/25 06:54 Respiratory Rate 18 01/19/25 06:54 Blood Pressure 91/56 L 01/19/25 06:54 Blood Pressure Mean 67 L 01/19/25 06:54 Pulse Oximetry 94 01/19/25 06:54 Oxygen Delivery Method Room Air 01/19/25 06:54 Vital Signs Temperature 96.6 F L 01/19/25 06:54 Pulse Rate 96 01/19/25 06:54 Respiratory Rate 18 01/19/25 06:54 Blood Pressure 91/56 L 01/19/25 06:54 Pulse Oximetry 94 01/19/25 06:54 Oxygen Delivery Method Room Air 01/19/25 06:54 Temperature 97.0 F L 01/19/25 07:26 Pulse Rate 91 01/19/25 07:36 Respiratory Rate 23 01/19/25 07:36 Blood Pressure 132/78 01/19/25 07:36 Pulse Oximetry 100 01/19/25 07:36 Oxygen Delivery Method OxyMask 01/19/25 07:26 Oxygen Flow Rate 5 01/19/25 07:26 Medications Administered Medications: Generic Name Dose Route Start Last Admin Trade Name Freq PRN Reason Stop Dose Admin Norepinephrine/Dextrose 4,000 mcg in 250 mls @ 30.618 mls/hr 01/19/25 06:51 01/19/25 07:11 Norepinephrine Infusion IVPB 0 mcg/kg/min CONT JAYE 0.3 mls/hr Protocol Titration 0.1 MCG/KG/MIN Discontinued Medications Generic Name Dose Route Start Last Admin Trade Name Carol PRN Reason Stop Dose Admin Hydromorphone HCl 0.25 mg 01/19/25 07:16 01/19/25 07:16 Hydromorphone 0.5 Mg/0.5 Ml Inj IVP 01/19/25 07:17 0.25 mg ONCE ONE Administration Sodium Chloride 1,000 mls @ 1,000 mls/hr 01/19/25 06:52 01/19/25 07:56 0.9 % Sodium Chloride 1000 Ml IV 01/19/25 07:51 Infused .Q1H JAYE Infusion Medical Decision Making Lab Data Lab results reviewed: Yes I reviewed the patient's lab results Lab results narrative: Marked anemia, no acidosis. Reassuring renal function, elevated lactate. Labs: Lab Results 01/19/25 01/19/25 Range/Units 06:50 07:08 WBC 14.36 H (4.50-11.00) K/uL RBC 1.79 L (4.00-5.20) m/uL Hgb 4.8 L* (12.0-16.0) gm/dL Hct 15.5 L (33.0-51.0) % MCV 87 (80-100) fL MCH 27 (26-34) pg MCHC 31 L (32-36) gm/dL RDW Coeff of Rosa 17.0 H (11.5-15.5) % Plt Count 316 (140-440) K/uL Neut % (Auto) 81.0 H (42.0-72.0) % Lymph % (Auto) 12.7 L (20-44) % [place] % (Auto) 4.4 (0.0-11.0) % Eos % (Auto) 0.2 (0.0-7.0) % Baso % (Auto) 0.3 (0.0-3.0) % Neut # (Auto) 11.60 H (1.7-7.0) K/uL Lymph # (Auto) 1.80 (0.90-2.90) K/uL [place] # (Auto) 0.60 (0.00-0.90) K/UL Eos # (Auto) 0.00 (0.00-0.50) K/uL Baso # (Auto) 0.00 (0.00-0.30) K/uL Abs Immat Gran (auto) 0.20 (0.00-0.30) K/uL Imm/Tot Granulo (auto) 1.4 % VBG pH 7.377 (7.32-7.43) VBG pCO2 32 L (40-50) mmHG VBG pO2 44.7 (25-47) mmHG VBG HCO3 19 L (21-28) mmol/L Sodium 137 (135-149) mmol/L Potassium 3.6 (3.6-5.1) mmol/L Chloride 108 (96-114) mmol/L Carbon Dioxide 18 L (20-32) mmol/L Anion Gap 11 (7-15) mEq/L BUN 25 (7-30) mg/dL Creatinine 1.0 (0.5-1.5) mg/dL Estimated GFR 58 ml/min Glucose 158 H (60-115) mg/dL Lactate 6.7 H* (0.5-1.9) mmol/L Calcium 7.5 L (8.4-10.6) mg/dL Total Bilirubin 0.3 (0.1-1.5) mg/dL AST 23 (12-35) U/L ALT 20 (4-35) U/L Alkaline Phosphatase 47 (40-150) U/L Troponin I < 0.01 (0.01-0.04) ng/mL Total Protein 4.0 L (6.0-8.3) g/dL Albumin 2.3 L (3.3-5.0) g/dL Blood Type O Positive Antibody Screen NEGATIVE Crossmatch (AHG) See Detail Discharge Plan Discharge Clinical Impression: Hemorrhagic shock, Acute upper gastrointestinal bleeding, Acute blood loss anemia Patient Disposition: [facility] Discharge Location: [facility] Condition: Guarded
[2025-01-19] MEDS: HYDROmorphone 0.5 mg/0.5 ml inj 0.25 MG IVP (07:16)
[2025-01-19 07:19] LABS: Hemoglobin* 4.8 gm/dL (12.0-16.0); Slide Review Reflex No
[2025-01-19 07:20] LABS: Lactate* 6.7 mmol/L (0.5-1.9)
[2025-01-19] MEDS: PANTOPRAZOLE SODIUM 40 MG INJ IVP (07:20)
[2025-01-19 07:34] LABS: Albumin* 2.3 g/dL (3.3-5.0); Chloride* 108 mmol/L (96-114)
[2025-01-19 07:35] LABS: Potassium* 3.6 mmol/L (3.6-5.1); Sodium* 137 mmol/L (135-149)
[2025-01-19 07:37] LABS: Alanine Aminotransferase* 20 U/L (4-35); Anion Gap 11 mEq/L (7-15); Aspartate Amino Transferase* 23 U/L (12-35); Blood Urea Nitrogen* 25 mg/dL (7-30); Carbon Dioxide* 18 mmol/L (20-32); Estimated Glomerular Filt Rate 58 ml/min
[2025-01-19 07:38] LABS: Alkaline Phosphatase* 47 U/L (40-150); Bilirubin Total* 0.3 mg/dL (0.1-1.5); Calcium* 7.5 mg/dL (8.4-10.6); Glucose* 158 mg/dL (60-115)
[2025-01-19 07:57] LABS: Troponin I* < 0.01 ng/mL (0.01-0.04)
== END 2025-01-19 07:45 | disposition short-term general hospital (02) ==
PROVIDERS: Emergency Provider Family Medicine; PCP Family Medicine
DX: R57.8 Other shock (principal); K92.2 Gastrointestinal hemorrhage, unspecified; D62 Acute posthemorrhagic anemia
CPT/HCPCS: 36415; 80053; 82803; 83605; 84484; 85025; 86850; 86900; 86901; 86922; 96374; 96375; 99284; 99285; 99291; A0425; A0434; J1171; J2470; J7030; P9016

== ENCOUNTER 2025-01-19 07:32 | Outpatient (CLI) | payer MEDICARE, BC, SELFPAY ==
--- OUTSIDE RECORDS SUMMARY | 2025-01-23 00:15 | XMS_ITS | Clinical Summary ---
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 Cut Out Worker Name Role Phone Mali Monroy MD Primary Care Prov ider Jeet Martinez Unavailable Kelvin Sandoval MD Unavailable [phone] Specialists, [facility] Surgical Unavailable Allergies No known active allergies Medications Bxrdp-6-DRN-EPA-Fis h Oil (FISH OIL) 1,000 mg (120 [...] lesion 01/09/2025 Overview (01/09/2025): Head CT at [facility] on 01/09/2025 showed 12 mm hyperdensity along [...] (04/24/2021): Added automatically from request for surgery [id number] Per endocrine 04/2021 The Patient has an excellent prognosis with respect to her thyroid cancer diagnosis. A reasonable plan would include: Annual Tg monitoring: with reassurance if ongoing negative results are noted. Lifelong synthroid use. Thyroid nodule 07/13/2017 Overview (07/13/2017): Added automatically from request for surgery [id number] Seasonal allergies 05/10/2014 Screen for colon cancer 09/15/2012 Overview (09/15/2012): Colonoscopy 09/2012 normal repeat in 10 years Hypercholesteremia 08/18/2012 Osteopenia 05/29/2010 Overview (09/01/2015): 2015 stable osteopenia repeat in 3-5 yrs Resolved Problems Problem Noted Date Diagnosed Date Resolved Date Cancer of thyroid 09/02/2017 04/22/2021 Encounters Date Type Department Care Team Description 5 12:45 PM CDT Office Visit [facility] [address] [place] [address] Mali Monroy MD Hospital F/U (GI Bleed, surgery on 01/16 Fatigue no pain) 5 Travel 5 Patient Outreach [facility] [address] [place] [address] Ernestina Mesa RN Primary RN Care Management; Hospital F/U (LACE 54) 5 11:30 AM CDT Anesthesia Event [facility] [address] [place] [address] Dhara Medina MD 5 10:49 AM CDT - 5 11:29 AM CDT Surgery [facility] [address], [place] [address] Viji Mckeon MD ESOPHAGOGASTRODUODENOSCOPY WITH HEMOSTASIS, EPINEPHRINE INJECTION, BIOPSY, AND BICAP 5 Telephone [facility] [address] [phone] Care Coordination 5 Patient Outreach [facility] [address] [place] [address] Ernestina Mesa, KETTY Primary RN Care Management; Hospital F/U (LACE 24) 5 3:40 PM CDT - 5 4:13 PM CDT Hospital Encounter [facility] [address] [place] [address] Edilberto Grossman MD [facility], Addi Wasserman MD Residents, Shimon Gramajo MD Gastrointestinal hemorrhage, unspecified gastrointestinal hemorrhage type (Primary Dx); Weakness; Fatigue, unspecified type; Melena; Anemia due to gastrointestinal blood loss Discharge Disposition: Home Self Care 5 1:35 PM CDT Anesthesia Event [facility] [address] [place] [address] Reshma Duenas MD Lestor, Jennifer Kim, CRNA 5 1:06 PM CDT - 5 1:51 PM CDT Surgery [facility] [address] [place] [address] Shimon Pearl MD COLONOSCOPY 5 4:28 PM CDT Anesthesia Event [facility] [address] [place] [address] Marti Mueller MD 5 3:49 PM CDT - 5 4:34 PM CDT Surgery [facility] [address] [place] [address] Shimon Pearl MD ESOPHAGOGASTRODUODENOSCOPY 5 Telephone [facility] [address] [place] [address] Karen Jaeger PA silke's son called / looking for missing cell phone 5 10:30 PM CDT - 5 12:33 PM CDT Hospital Encounter [facility] [address] [place] [address] [facility], [facility] Of [facility], MD Lev Taylor, Verónica Arroyo MD Anemia due to gastrointestinal blood loss (Primary Dx); Hiatal hernia Discharge Disposition: Home Self Care 5 1:35 PM CDT Office Visit [facility] [address] [place] [address] Kraen Jaeger PA Concerns (SOUSA Concerns pressure in Forehead. Congestion/tightness in chest. SOBEDigestion concerns. No regular BM for 5 weeks. Last Bm was shoe string size. Last BM was this morning. Bloating ) 5 Orders Only [facility] Scanner 1 scan: (1-Ord) [facility], XR CHEST 1V PORTABLE, 01/09/2025 5 Orders Only [facility] Scanner 1 scan: (1-Ord) [facility], CT ABD W , 01/09/2025 5 Orders Only [facility] Scanner 1 scan: (1-Ord) [facility], CT ANGIO CHEST PE PROTOCOL, 01/09/2025 5 Orders Only [facility] Scanner 1 scan: (1-Ord) [facility], XR CHEST 1V, 01/09/2025 5 Orders Only [facility] Scanner 1 scan: (1-Ord) [facility], CT HEAD/BRAIN, 01/09/2025 5 Refill [facility] [address] [place] [address] Karen Jaeger PA Refill Request (Fluticasone (50 Mcg Per Actuation) Nasal) 5 Travel from Last 3 Months Immunizations Immunization Administration Dates Next Due COVID-19 vaccine (AkaRx NTech 30mcg/0.3mL) PF, MDV 07/22/2021 Influenza, High-dose [...] and AF 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 Pathologist [facility] HEMOGLOBIN 8.2(L) 11.7 - 15.5 g/dL [facility] Blood BLOOD SPECIMEN / Unknown 01/18/2025 2:21 PM CDT 01/18/2025 2:22 PM CDT Mali Monroy MD HEMATOLOGY [facility] Result Local[facility] [address] [place] [address], [facility] [address] [place] [phone] * (ABNORMAL) Basic metabolic panel AM (01/17/2025 5:57 AM CDT) Only the most recent of4 resultswithin the time period is included. Pathologist [facility] SODIUM 140 136 - 145 mmol/L 01/17/2025 6:57 AM CDT [facility] POTASSIUM 3.8 3.5 - 5.1 mmol/L 01/17/2025 6:57 AM CDT [facility] TRAL LABORATORY CHLORIDE 107 98 - 107 mmol/L 01/17/2025 6:57 AM CDT [facility] TRAL LABORATORY CO2,TOTAL 23 22 - 29 mmol/L 01/17/2025 6:57 AM CDT [facility] TRAL LABORATORY ANION GAP 10 5 - 18 01/17/2025 6:57 AM CDT [facility] TRAL LABORATORY GLUCOSE 88 70 - 99 mg/dL 01/17/2025 6:57 AM CDT [facility] TRAL LABORATORY CALCIUM 8.0(L) 8.8 - 10.4 mg/dL 01/17/2025 6:57 AM CDT [facility] TRAL LABORATORY Comment: Reference ranges for this test were updated on 06/06/2024 to reflect our healthy population more accurately. Reference range changes are not retroactively applied to results, but previous results using the same methodology can be interpreted in the context of the new reference range. BUN 6(L) 8 - 23 mg/dL 01/17/2025 6:57 AM CDT [facility] TRA LABORATORY CREATININE 0.78 0.50 - 0.90 mg/dL 01/17/2025 6:57 AM CDT [facility] LABOR[facility] BUN/CREAT RATIO 8(L) 10 - 20 6:57 AM CDT [facility] eGFR 78(L) >90 mL/min/1. 73m2 01/17/2025 6:57 AM CDT [facility] TRAL LABORATORY Comment:As of 2021, eG FR [...] us Saman Campos MD CHEMISTRY Final Result [facility] [address] [place] [address], [place] * SCAN-CARDIAC STRIP (01/17/2025 3:12 AM CDT) us Scanner OTHER Final Result * PATH TISSUE EXAM (01/16/2025 11:56 AM CDT) Case Report Pathology Report Case: [id number] Authorizing Provider: Viji Mckeon MD Collected: 01/16/2025 1156 Ordering Location: [facility] Received: 01/16/2025 1218 Hospital Pathologist: Thomas Dobbs MD Specimen: Gastric Biopsy, ulcer 01/17/2025 8:53 AM CDT [facility] ENTRAL LABORAT[facility] Final Diagnosis A) STOMACH, BIOPSY: 1. Gastric cardia mucosa with ulceration and reactive changes 2. Negative for Helicobacter 3. Negative for dysplasia 01/17/2025 8:53 AM CDT [facility] at 0853 CDT Clinical Information Ms. Uribe is a 79 y.o. with melena who undergoes upper GI endoscopy. 01/17/2025 8:53 AM CDT [facility] Gross Description A) Received in formalin are 4 stuart mucosal fragments averaging 1 mm in greatest dimension, which are entirely submitted in one cassette. It is labeled with the patient's name and designated gastric ulcer biopsy. COLLEEN Leyva 01/16/2025 2:50 PM 01/17/2025 8:53 AM CDT [facility] Microscopic Description The final diagnosis is based on microscopic examination of appropriate sections of all specimens. 01/17/2025 8:53 AM CDT [facility] Additional Information Interpreted at [facility] - [address], [place] [address] 01/17/2025 8:53 AM CDT [facility] Biopsy GASTRIC BIOPSY SPECIMEN / Unknown 01/16/2025 11:56 AM CDT 01/16/2025 12:18 PM CDT us Viji Mckeon MD PATHOLOGY/CYTOLOGY Final Res ult [facility] [address] [place] [address], * ENDOSCOPY (01/16/2025 11:31 AM CDT) 01/16/2025 11:3 1 AM CDT Narrative Transcriptions Viji Mckeon MD - 01/16/2025 12:13 PM CDT [place] Patient Name: Rosemarie Uribe Procedure Date: 01/16/2025 Gender: Female Date of : 1945 Admit Type: Inpatient Procedure: Upper GI endoscopy Proceduralist: Viji Mckeon - [facility] Indications/Pre-Op Diagnosis: Melena Medications: Monitored Anesthesia Care Procedure Description: Risk of bleeding, infection, perforation, need for surgery and alternatives discussed. The endosocpe [id number] was introduced through the mouth, and advanced [...] QUANTITY 1 01/16/2025 2:3 8 AM CDT [facility] [employer] LAB BLOOD BANK Blood BLOOD SPECIMEN / Unknown 01/16/2025 2:36 AM CDT Loretta Thomas DO BLOOD BANK Final Result [facility] BLOOD BANK [address] [place] [address], [place] [phone] * RED BLOOD CELLS EA UNIT (01/16/2025 2:38 AM CDT) Only the most recent of6 resultswithin the time period is included. CROSSMATCH Compatible Compatible [facility] BLOOD B[facility] PRODUCT BLOOD TYPE O Rh Positive [facility] [employer] [facility] BLOOD BANK PRODUCT ID NUMBER [id number] [facility] [employer] [facility] BLOOD BANK PRODUCT STATUS Transfused [facility] PRODUCT DESCRIPTION RBC -1 LR Pt1 [facility] PRODUCT CODE [id number] [facility] LAB BLOOD BANK ISSUE DATE/TIME 01/16/25 02:49 [facility] LAB BLOOD BANK Loretta Thomas DO BLOOD BANK Edited Result - Final [facility] Development[facility]TRAL LAB BLOOD BANK [address] [place] [address], [place] [phone] * SCAN-CARDIAC STRIP (01/16/2025 1:27 AM CDT) Scanner OTHER Final Result * URINALYSIS MICROSCOPIC (01/15/2025 8:45 PM CDT) RBC 0-2 0-2, None Seen /HPF 01/15/2025 9:17 PM CDT [facility] TRAL LABORATORY WBC 0-2 0-2, 3-5, None Seen /HPF 01/15/2025 9:17 PM CDT [facility] TRAL LABORATORY BACTERIA None Seen None Seen, Rare, Few Bacteria/ HPF 01/15/2025 9:17 PM CDT [facility] TRAL LABORATORY EPITHELIAL CELLS None Seen None Seen, Few Epi/HPF 01/15/2025 9:17 PM CDT [facility] TRAL LABORATORY HYALINE CASTS 0-2 0-2, 3-5 /LPF 01/15/2025 9:17 PM CDT [facility] TRAL LABORATORY Urine URINE SPECIMEN / Unknown Non-Blood / Unknown 01/15/2025 8:45 PM CDT 01/15/2025 8:53 PM CDT us Med Ayala MD URINE Final Result Performing Organization Address City/[facility]/ZIP Co de Phone Number [facility] [address] [place] [address], [place] * (ABNORMAL) Urinalysis TODAY (01/15/2025 8:45 PM CDT) COLOR Yellow Yellow Color 01/15/2025 9:17 PM CDT [facility] TRAL LABORATORY CLARITY Clear Clear Clarity 01/15/2025 9:17 PM CDT [facility] TRAL LABORATORY SPECIFIC GRAVITY,URINE 1.010 1.010, 1.015, 1.020, 1.025 01/15/2025 9:17 PM CDT [facility] TRAL LABORATORY PH,URINE 5.5 6.0, 7.0, 8.0, 5.5, 6.5, 7.5, 8.5 01/15/2025 9:17 PM CDT [facility] UROBILINOGEN, QUALITATIVE Normal Normal EU/dl 01/15/2025 9:17 PM CDT [facility] TRAL LABORATORY PROTEIN, URINE Negative Negative mg/dL 01/15/2025 9:17 PM CDT [facility] TRAL LABORATORY GLUCOSE, URINE Negative Negative mg/dL 01/15/2025 9:17 PM CDT [facility] TRAL LABORATORY KETONES,URINE Negative Negative mg/dL 01/15/2025 9:17 PM CDT [facility] TRAL LABORATORY BILIRUBIN,URI NE Negative Negative 01/15/2025 9:17 PM CDT [facility] TRAL LABORATORY OCCULT BLOOD,URINE Negative Negative 01/15/2025 9:17 PM CDT [facility] TRAL LABORATORY NITRITE Negative Negative 01/15/2025 9:17 PM CDT [facility] LEUKOCYTE ESTERASE Trace(A) Negative 01/15/2025 9:17 PM CDT [facility] Urine URINE SPECIMEN / Unknown Non-Blood / Unknown 01/15/2025 8:45 PM CDT 01/15/2025 8:53 PM CDT us Med Ayala MD URINE Final Result [facility] [address] [place] [address], [place] * SCAN-CARDIAC STRIP (01/15/2025 2:36 PM CDT) Scanner OTHER Final Result * LACTATE VENOUS (01/15/2025 8:17 AM CDT) Only the most recent of2 resultswithin the time period is included. LACTATE,VENOUS 0.9 0.5 - 2.0 mmol/L 01/15/2025 9:09 AM CDT [facility] Blood BLOOD SPECIMEN / Unknown Butterfly / Unknown 01/15/2025 8:17 AM CDT 01/15/2025 8:27 AM CDT Shimon Martínez MD CHEMISTRY Final Res ult Performing Organization Address City/[facility]/ZIP Co de Phone Number [facility] [address] [place] [address], * Magnesium FOR ADD ON (01/15/2025 8:17 AM CDT) Pathologist [facility] MAGNESIUM 1.9 1.6 - 2.4 mg/dL 01/15/2025 3:51 PM CDT [facility] Blood BLOOD SPECIMEN / Unknown Butterfly / Unknown 01/15/2025 8:17 AM CDT 01/15/2025 8:27 AM CDT Shimon Martínez MD CHEMISTRY Final Res ult [facility] [address] [place] [address], * Calcium, ionized STAT (01/15/2025 8:17 AM CDT) CALCIUM,IONIZE D 1.18 1.15 - 1.27 mmol/L 01/15/2025 8:36 AM CDT [facility] Blood BLOOD SPECIMEN / Unknown Butterfly / Unknown 01/15/2025 8:17 AM CDT 01/15/2025 8:27 AM CDT us Fredy Coronado MD CHEMISTRY Final Result [facility] LAB[facility]-CENTRAL LABORATORY [address] [place] [address], [place] * TRANSFUSE RBC (NURSE COMMUNICATION ORDER) [...] after intravenous administration of 100 cc of [id number]. Thin section axial images were obtained from [...] OTHER Final Result * (ABNORMAL) Protime-INR - DIGITAL COMPOSER (01/15/2025 4:11 AM CDT) Only the most recent of3 resultswithin the time period is included. INR 1.2 <1.3 01/15/2025 4:38 AM CDT [facility] PROTIME 14.0(H) 10.6 - 12.4 sec 01/15/2025 4:38 AM CDT [facility] Blood BLOOD SPECIMEN / Unknown Venipuncture / Unknown 01/15/2025 4:11 AM CDT 01/15/2025 4:22 AM CDT [facility] LAB[facility] - 01/15/2025 4:38 AM CDT Therapeutic [...] Shimon Martínez MD HEMATOLOGY Final Res ult [facility] [address] [place] [address], * (ABNORMAL) Comprehensive Metabolic Panel - DIGITAL COMPOSER (01/15/2025 4:11 AM CDT) SODIUM 138 136 - 145 mmol/L 01/15/2025 5:10 AM CDT [facility] TRAL LABORATORY POTASSIUM 3.6 3.5 - 5.1 mmol/L 01/15/2025 5:10 AM CDT [facility] TRAL LABORATORY CHLORIDE 108(H) 98 - 107 mmol/L 01/15/2025 5:10 AM CDT [facility] TRAL LABORATORY CO2,TOTAL 17(L) 22 - 29 mmol/L 01/15/2025 5:10 AM CDT [facility] TRAL LABORATORY ANION GAP 13 5 - 18 01/15/2025 5:10 AM [facility] TRAL LABORATORY GLUCOSE 213(H) 70 - 99 mg/dL 01/15/2025 5:10 AM [facility] TRAL LABORATORY CALCIUM 7.1(L) 8.8 - 10.4 mg/dL 01/15/2025 5:10 AM [facility] TRAL LABORATORY BUN 21 8 - 23 mg/dL 01/15/2025 5:10 AM [facility] CREATININE 0.83 0.50 - 0.90 mg/dL 01/15/2025 5:10 AM [facility] BUN/CREAT RATIO 25(H) 10 - 20 5:10 AM [facility] LAB[facility] eGFR 73(L) >90 mL/min/1.7 3m2 [...] 10 - 35 IU/L 01/15/2025 5:10 AM [facility] Blood BLOOD SPECIMEN / Unknown Venipuncture / Unknown 01/15/2025 4:11 AM CDT 01/15/2025 4:22 AM CDT us Shimon Martínez MD CHEMISTRY Final Res ult [facility] [address] [place] [address], [place] * (ABNORMAL) CBC WITH AUTO DIFFERENTIAL (01/15/2025 4:10 AM CDT) Only the most recent of2 resultswithin the time period is included. [facility] WHITE BLOOD COUNT 5.3 4.5 - 11.0 thou/cu mm 01/15/2025 4:48 AM CDT [facility] TRAL LABORATORY RED BLOOD COUNT 2.02(L) 4.00 - 5.20 mil/cu mm 01/15/2025 4:48 AM CDT [facility] TRAL LABORATORY HEMOGLOBIN 5.1(LL) 12.0 - 16.0 g/dL 01/15/2025 4:48 AM CDT [facility] TRAL LABORATORY HEMATOCRIT 16.9(L) 33.0 - 51.0 % 01/15/2025 4:48 AM CDT [facility] TRAL LABORATORY MCV 84 80 - 100 fL 01/15/2025 4:48 AM CDT [facility] TRAL LABORATORY MCH 25.2(L) 26.0 - 34.0 pg 01/15/2025 4:48 AM CDT [facility] TRAL LABORATORY MCHC 30.2(L) 32.0 - 36.0 g/dL 01/15/2025 4:48 AM CDT [facility] TRAL LABORATORY RDW 17.6(H) 11.5 - 15.5 % 01/15/2025 4:48 AM CDT [facility] TRAL LABORATORY PLATELET COUNT 282 140 - 440 thou/cu mm 01/15/2025 4:48 AM CDT [facility] TRAL LABORATORY MPV 8.9 6.5 - 11.0 fL 01/15/2025 4:48 AM CDT [facility] TRAL LABORATORY NRBC 0.0 % 01/15/2025 4:48 AM CDT [facility] TRAL LABORATORY ABS NRBC 0.0 thou /cu mm 01/15/2025 4:48 AM CDT [facility] TRAL LABORATORY % NEUT 65.1 % 01/15/2025 4:48 AM CDT [facility] TRAL LABORATORY % LYMPH 28.8 % 01/15/2025 4:48 AM CDT [facility] TRAL LABORATORY % MONO 4.5 % 01/15/2025 4:48 AM CDT [facility] TRAL LABORATORY % EOS 0.8 % 01/15/2025 4:48 AM CDT [facility] TRAL LABORATORY % BASO 0.4 % 01/15/2025 4:48 AM CDT [facility] TRAL LABORATORY % IMMATURE GRAN (METAS,MYELOS,SD OS) 0.4 % 01/15/2025 4:48 AM CDT [facility] TRAL LABORATORY ABSOLUTE NEUTROPHILS 3.5 1.7 - 7.0 thou/cu mm 01/15/2025 4:48 AM CDT [facility] TRAL LABORATORY ABSOLUTE LYMPHOCYTES 1.5 0.9 - 2.9 thou/cu mm 01/15/2025 4:48 AM CDT [facility] TRAL LABORATORY ABSOLUTE MONOCYTES 0.2 <0.9 thou/cu mm 01/15/2025 4:48 AM CDT [facility] TRAL LABORATORY ABSOLUTE EOSINOPHILS 0.0 <0.5 thou/cu mm 01/15/2025 4:48 AM CDT [facility] TRAL LABORATORY ABSOLUTE BASOPHILS 0.0 <0.3 thou/cu mm 01/15/2025 4:48 AM CDT [facility] TRAL LABORATORY ABSOLUTE IMMATURE GRANULOCYTES(MET ,MYELOS,PROS) 0.0 <0.3 thou/cu mm 01/15/2025 4:48 AM CDT [facility] TRAL LABORATORY Blood BLOOD SPECIMEN / Unknown Venipuncture / Unknown 01/15/2025 4:10 AM CDT 01/15/2025 4:22 AM CDT us Shimon Martínez MD HEMATOLOGY Final Res ult [facility] [address] [place] [address], [place] * (ABNORMAL) BLOOD GAS,VENOUS (01/15/2025 4:10 AM CDT) PH, VENOUS 7.29(L) 7.32 - 7.43 01/15/2025 4:26 AM CDT [facility] TRAL LABORATORY PCO2, VENOUS 37(L) 41 - 51 mmHg 01/15/2025 4:26 AM CDT [facility] TRAL LABORATORY PO2, VENOUS 25(L) 35 - 40 mmHg 01/15/2025 4:26 AM CDT [facility] TRAL LABORATORY HCO3,VENOUS 18(L) 22 - 29 mmol/L 01/15/2025 4:26 AM CDT [facility] TRAL LABORATORY BASE EXCESS, VENOUS, POCT -8.1(L) -2.0 - 3.0 01/15/2025 4:26 AM CDT [facility] TRAL LABORATORY O2 SATURATION, VENOUS 30(L) 70 - 75 % 01/15/2025 4:26 AM CDT [facility] TRAL LABORATORY PATIENT TEMPERATURE 37.0 Degrees C 01/15/2025 4:26 AM CDT [facility] TRAL LABORATORY Blood VENOUS BLOOD SPECIMEN / Unknown Venipuncture / Unknown 01/15/2025 4:10 AM CDT 01/15/2025 4:22 AM CDT us Shimon Martínez MD CHEMISTRY Final Res ult [facility] [address] [place] [address], [place] * 12 Lead EKG - DIGITAL COMPOSER (01/15/2025 3:27 AM CDT) Interpretation Sinus tachycardia [...] NOW QTc 487 ms BEYOND NOW P Rowdy 31 degrees BEYOND NOW R Rowdy 29 degrees BEYOND NOW T Rowdy 41 degrees BEYOND NOW 01/15/2025 3:27 AM CDT 01/16/2025 3:47 PM CDT Shimon Martínez MD EKG ORD Final Res ult [facility] NOW [place], [place] * (ABNORMAL) GLUCOSE METER (01/15/2025 3:05 AM CDT) GLUCOSE METER 253(H) 65 - 100 mg/dL 01/15/2025 3:11 AM CDT [facility] Blood BLOOD SPECIMEN / Unknown 01/15/2025 3:05 AM CDT 01/15/2025 3:11 AM CDT [facility] CHEMISTRY Final Re sult [facility] [address] [place] [address], [place] * TRANSFUSE RBC (NURSE COMMUNICATION ORDER) (01/14/2025 8:02 PM CDT) Blood BLOOD SPECIMEN / Unknown Edilberto Grossman MD NURSING BLOOD BANK Felicity l Result * TROPONIN T ONE TIME (01/14/2025 4:17 PM CDT) TROPONIN T HS 10 6-10 ng/L ng/L 01/14/2025 4:53 PM CDT [facility] Blood BLOOD SPECIMEN / Unknown Non-Lab Venipuncture / Unknown 01/14/2025 4:17 PM CDT 01/14/2025 4:26 PM CDT Narrative [facility] [place]AL LABORATORY - 01/14/2025 4:53 PM CDT hs-cTnT [...] Edilberto Grossman MD CHEMISTRY Final R esult [facility] LAB[facility]-C[facility]AL LABORATORY [address] [place] [address], * TYPE AND SCREEN ONLY (01/14/2025 4:17 PM CDT) ABORH O Rh Positive 01/14/2025 5:12 PM CDT [facility]-CENTRAL LAB BLOOD BANK ANTIBODY SCREEN Negative Negative 01/14/2025 5:12 PM CDT [facility]-CENTRAL LAB BLOOD BANK SPECIMEN EXPIRATION DATE/TIME 01/17/25 23:59 01/14/2025 5:12 PM CDT [facility] BLOOD BANK Blood BLOOD SPECIMEN / Unknown Non-Lab Venipuncture / Unknown 01/14/2025 4:17 PM CDT 01/14/2025 4:27 PM CDT Edilberto Grossman MD BLOOD BANK Final R esult [facility] BLOOD BANK [address] [place] [address], [place] [phone] * (ABNORMAL) HEPATIC FUNCTION PANEL (01/14/2025 4:17 PM CDT) ALBUMIN 3.8(L) 4.0 - 4.9 g/dL 01/14/2025 4:53 PM CDT [facility] PROTEIN,TOTAL 6.1 6.0 - 8.0 g/dL 01/14/2025 4:53 PM CDT [facility] BILIRUBIN,TOTAL 0.2 0.0 - 1.2 mg/dL 01/14/2025 4:53 PM CDT [facility] BILIRUBIN,DIRECT 0.2 0.0 - 0.2 mg/dL 01/14/2025 4:53 PM CDT [facility] BILIRUBIN,INDIRE CT 0.0(L) 0.2 - 0.8 mg/dL 01/14/2025 4:53 PM CDT [facility] ALK PHOSPHATASE 68 35 - 104 IU/L 01/14/2025 4:53 PM CDT [facility] ALT (SGPT) 12 10 - 35 IU/L 01/14/2025 4:53 PM CDT [facility] AST (SGOT) 19 10 - 35 IU/L 01/14/2025 4:53 PM CDT [facility] Blood BLOOD SPECIMEN / Unknown Non-Lab Venipuncture / Unknown 01/14/2025 4:17 PM CDT 01/14/2025 4:26 PM CDT us Edilberto Grossman MD CHEMISTRY Final R esult [facility] [address] [place] [id number], [place] * Potassium TODAY (01/12/2025 11:19 AM CDT) POTASSIUM 4.1 3.5 - 5.1 mmol/L 01/12/2025 12:08 PM CDT [facility] Blood BLOOD SPECIMEN / Unknown Venipuncture / Unknown 01/12/2025 11:19 AM CDT 01/12/2025 11:25 AM CDT us Verónica Ohara MD CHEMISTRY Final Result Performing Organization Address [facility] Co de Phone Number [facility] [address] [address], [place] * (ABNORMAL) Creatinine TODAY (01/12/2025 11:19 AM CDT) eGFR 78(L) >90 mL/min/1.7 3m2 01/12/2025 12:08 PM CDT [facility] Comment:As of 2021, eG FR is calculated by the CKD-EPI creatinine equation without race adjustment. eGFR can be influenced by muscle mass, exercise, and diet. The reported eGFR is an estimation only and is only applicable if the renal function is stable. CREATININE 0.78 0.50 - 0.90 mg/dL 01/12/2025 12:08 PM CDT [facility] Blood BLOOD SPECIMEN / Unknown Venipuncture / Unknown 01/12/2025 11:19 AM CDT 01/12/2025 11:25 AM CDT us Verónica Ohara MD CHEMISTRY Final Result Performing Organization Address City/[facility]/ZIP Co de Phone Number [facility] [address] [address], [place] * SCAN-CARDIAC STRIP (01/12/2025 12:44 AM CDT) us Scanner OTHER Final Result * COLONOSCOPY (01/11/2025 1:29 PM CDT) 01/11/2025 1:29 PM CDT Narrative Transcriptions Shimon Pearl MD - 01/11/2025 2:16 PM CDT [place] [facility] Patient Name: Rosemarie Urieb Procedure Date: 01/11/2025 Gender: Female Date of : 1945 Admit Type: Inpatient Procedure: Colonoscopy Proceduralist: Shimon Pearl MD - [facility] Indications/Pre-Op Diagnosis: GI bleeding Medications: MAC Procedure Description: The patient had risks, benefits and alternatives explained to andgave informed consent. The patient had a stable cardiopulmonary status and judged an adequate candidate for sedation. The endoscope [id number] was passed through the anus andadvanced to [...] GI endoscopy Proceduralist: Shimon Pearl MD - [facility] Referring MD: Lux Lambert Indications/Pre-Op Diagnosis: Abnormal imaging of the esophagus Medications: MAC Procedure Description: Risk of bleeding, infection, perforation, need for surgery and alternatives discussed. The endosocpe [id number] was introduced through the mouth, and advanced [...] Tech: PAUL Referring MD: ZOHREH LYNNE Site: [facility] Reading Location: [facility] Patient Location: Inpatient. Procedure: [...] . This study was interpreted by an [facility] accredited facility. Final Procedure Note Kavitha Chavez MD - 01/10/2025 ECHOCARDIOGRAM ROSEMARIE URIBE : 1945 79 years Study Date: 01/10/2025 9:10:03 AM Gender: F BP: 120/65 mmHg Height: 163.00 cm BSA: 1.80 m Weight: 74.00 kg Tech: PAUL Referring MD: ZOHREH LYNNE Site: [facility] Reading Location: [facility] Patient Location: Inpatient. Procedure: 2D, Color Doppler [...] . This study was interpreted by an [facility] accredited facility. Final us Zohreh Lynne MD ECHO ORD Final Resu lt * (ABNORMAL) CBC W PLT NO DIFF (01/10/2025 6:35 AM CDT) WHITE BLOOD COUNT 10.6 4.5 - 11.0 thou/cu mm 01/10/2025 7:33 AM CDT [facility] RED BLOOD COUNT 3.54(L) 4.00 - 5.20 mil/cu mm 01/10/2025 7:33 AM CDT [facility] HEMOGLOBIN 8.5(L) 12.0 - 16.0 g/dL 01/10/2025 7:33 AM T [facility] HEMATOCRIT 27.7(L) 33.0 - 51.0 % 01/10/2025 7:33 AM CDT [facility] MCV 78(L) 80 - 100 fL 01/10/2025 7:33 AM CDT [facility] MCH 24.0(L) 26.0 - 34.0 pg 01/10/2025 7:33 AM CDT [facility] MCHC 30.7(L) 32.0 - 36.0 g/dL 01/10/2025 7:33 AM T [facility] RDW 17.2(H) 11.5 - 15.5 % 01/10/2025 7:33 AM CDT [facility] PLATELET COUNT 398 140 - 440 thou/cu mm 01/10/2025 7:33 AM CDT [facility] MPV 8.9 6.5 - 11.0 fL 01/10/2025 7:33 AM CDT [facility] NRBC 0.0 % 01/10/2025 7:33 AM CDT [facility] ABS NRBC 0.0 thou /cu mm 01/10/2025 7:33 AM CDT [facility] Blood BLOOD SPECIMEN / Unknown Venipuncture / Unknown 01/10/2025 6:35 AM CDT 01/10/2025 7:15 AM CDT us Zohreh Lynne MD HEMATOLOGY Final Resu lt [facility] [address] [place] [address], [place] * SCAN-CARDIAC STRIP (01/10/2025 12:52 AM [...] to assess therapeutic efficacy. Jacquelyn Rees PA-C [facility] 06/02/2023 Narrative 06/02/2023 5:01 PM CDT For Patients: Results are automatically released to your [facility] ([employer]) account once available, in compliance with federal regulations. This means that you may see your results before your provider has had a chance to review them. Please allow 2-3 business days for your provider to comment on the results. XR DXA Bone Mineral Density (BMD) EXAM LOCATION: [address] [address] PATIENT NAME: Rosemarie Uribe DATE OF : [...] two scanners are made by the same tobacco primer machine operator. PROCEDURE: Dual-energy x-ray absorptiometry performed with routine [...] HB ONLY MEDICARE PART A HB ONLY [facility] Advance Directives Documents on File Type Date Recorded Patient Director Of Labor And Delivery Expl anation Healthcare Directive 07/03/2019 11:03 AM [...] 7:51 PM 08/21/2017 12:45 PM Care Teams Cut Out Worker Relationship Specialty Start Date End Date [place] [address] PCP - General 09/06/06 Jeet Martinez [address] [place] [address] Ophthalmology Surgery 08/18/12 Kelvin Sandoval MD [address] [facility] [address] [place] [address] Endocrinology 08/28/22 Specialists, [facility] [address] [facility] [address] [place] [address] 01/15/25
== END 2025-01-19 07:33 | disposition home or self-care (01) ==
LOC: AMB 01-22 09:19
PROVIDERS: PCP Family Medicine; Visit Provider Family Medicine
DX: R57.8 Other shock (principal); K92.2 Gastrointestinal hemorrhage, unspecified; D62 Acute posthemorrhagic anemia
CPT/HCPCS: A0425; A0434